=== PATIENT | male | born 1955 | race Caucasian/White ===

== ENCOUNTER 2016-04-01 15:32 | Emergency (ER) | payer OTHER ==
[2016-04-01 15:48] VITALS: BP 134/79; PULSE 97; TEMP 98.5; BMI 23.7
[2016-04-01 16:52] LABS: BASOPHIL 1.2 % (0-2.0); EOSINOPHIL 1.8 % (0-4.5); MCH 31.6 pg (25.7-33.7); MCHC 33.6 g/dl (32.0-35.9); MEAN CELL VOLUME 94.1 fl (80-96); NEUTROPHILS 79.2 % (42.8-82.8); PLATELET COUNT 219 K/MM3 (134-434); RDW 14.5 % (11.9-15.9); WHITE BLOOD COUNT 7.2 K/mm3 (4.0-10.0)
[2016-04-01 17:15] LABS: INR 1.02 (0.82-1.09); PROTHROMBIN TIME (PATIENT) 11.2 SEC (9.98-11.88)
[2016-04-01 17:21] LABS: ALBUMIN 3.4 g/dl (3.4-5.0); ANION GAP 7 (8-16); BILIRUBIN,TOTAL 0.9 mg/dL (0.2-1.0); CALCIUM 9.1 mg/dL (8.5-10.1); CO2 29 mmol/L (21-32); CREATININE 1.4 mg/dL (0.7-1.3); GLUCOSE,RANDOM 99 mg/dL (74-106); SGOT/AST 64 U/L (15-37); SGPT/ALT 44 U/L (12-78); TOT PROT 6.4 g/dl (6.4-8.2)
[2016-04-01 17:34] LABS: ALK PHOS 54 U/L (45-117); TROPONIN I < 0.02 ng/ml (0.00-0.05)
--- NOTE | 2016-04-01 18:09 | PDOC ---
[id number]: No Limitations - History of Present Illness Initial Comments: 04/01/16 18:25 The patient is a 60 year old female with a significant past medical history of testicular cancer, kidney cancer, renal insufficiency, who presents to the emergency department today for further evaluation of a hematoma on his right buttox since Tuesday. The patient states that he was playing tennis and went to back peddle when he fell on his buttox. The patient states that over past 2 days the hematoma has expanded to the posterior side of his right calf. patient also notes that Tuesday and Tuesday of this week he was experiencing dysuria and orange tinted urine. He notes that he has not experienced dysuria and orange tinted urine before but they have mostly resolved The patient denies fever, chills, and sweats. The patient denies nausea, vomiting, and diarrhea. The patient denies chest pain, cough, and shortness of breath. <Chau Corey - Last Filed: 04/01/16 18:26> <Stiven Guzman - Last Filed: 04/30/16 09:47> - General Chief Complaint: Injury Stated Complaint: BUTTOCKS SWELLING (HEMATOMA) Time Seen by Provider: 04/01/16 16:01 Past History <Chau Corey - Last Filed: 04/01/16 18:26> - Past Medical History Anemia: No Asthma: (SEASONAL ALLERGIES WITH WHEEZING) Cancer: Yes (TESTICULAR) Cardiac Disorders: No CVA: No COPD: No CHF: No Dementia: No Diabetes: No GI Disorders: No Disorders: Yes (LESION REMOVED FROM RIGHT KIDNEY) HTN: No Hypercholesterolemia: No Liver Disease: No Seizures: No Thyroid Disease: No - Surgical History Abdominal Surgery: No Appendectomy: No Cardiac Surgery: No Cholecystectomy: No Lung Surgery: No Neurologic Surgery: No Orthopedic Surgery: Yes (ARTHROSCOPY RIGHT '06) - Psycho/Social/Smoking Cessation Hx Suicidal Ideation: No Smoking History: Never smoked Have you smoked in the past 12 months: No Hx Alcohol Use: No Drug/Substance Use Hx: No Substance Use Type: None Hx Substance Use Treatment: No <Stiven Guzman - Last Filed: 04/30/16 09:47> - Past Medical History Allergies/Adverse Reactions: Allergies Allergy/AdvReac Type Severity Reaction Status Date / Time Penicillins Allergy Mild Cough Verified 04/01/16 15:44 Home Medications: Ambulatory Orders Clomipramine HCl [Anafranil] 150 mg PO HS 04/01/16 Review of Systems - Review of Systems Able to Perform ROS?: Yes Comments:: 04/01/16 18:25 GENERAL/CONSTITUTIONAL: No fever or chills. No weakness. HEAD, EYES, EARS, NOSE AND THROAT: No change in vision. No ear pain or discharge. No sore throat. CARDIOVASCULAR: No chest pain or shortness of breath. RESPIRATORY: No cough, wheezing, or hemoptysis. GASTROINTESTINAL: No nausea, vomiting, diarrhea or constipation. GENITOURINARY:(+) Dysuria, orange tinted urine. No frequency. MUSCULOSKELETAL: (+) Hematoma from right buttox to right calf. No neck or back pain. SKIN: No rash NEUROLOGIC: No headache, vertigo, loss of consciousness, or change in strength/ sensation. ENDOCRINE: No increased thirst. No abnormal weight change. HEMATOLOGIC/LYMPHATIC: No anemia, easy bleeding, or history of blood clots. ALLERGIC/IMMUNOLOGIC: No hives or skin allergy. <Chau Corey - Last Filed: 04/01/16 18:26> *Physical Exam - Vital Signs Last Vital Signs Temp Pulse Resp BP Pulse Ox 98.5 F 97 H 18 134/79 100 04/01/16 15:46 04/01/16 15:46 04/01/16 15:46 04/01/16 15:46 04/01/16 15:46 - Physical Exam Comments: 04/01/16 18:25 GENERAL: Awake, alert, and fully oriented, in no acute distress HEAD: No signs of trauma EYES: PERRLA, EOMI, sclera anicteric, conjunctiva clear ENT: Auricles normal inspection, hearing grossly normal, nares patent, oropharynx clear without exudates. Moist mucosa NECK: Passive and active motion limited due to dystonia, supple, no lymphadenopathy, JVD, or masses LUNGS: Breath sounds equal, clear to auscultation bilaterally. No wheezes, and no crackles HEART: Regular rate and rhythm, normal S1 and S2, no murmurs, rubs or gallops ABDOMEN: Soft, nontender, normoactive bowel sounds. No guarding, no rebound. No masses EXTREMITIES: Hematoma from right buttox to right mid calf. Normal range of motion, no edema. No clubbing or cyanosis. No cords, erythema, or tenderness NEUROLOGICAL: Cranial nerves II through XII grossly intact. Normal speech, normal gait SKIN: Warm, Dry, normal turgor, no rashes or lesions noted. <Chau Corey - Last Filed: 04/01/16 18:26> - Vital Signs Last Vital Signs Temp Pulse Resp BP Pulse Ox 98.5 F 97 H 18 134/79 100 04/01/16 15:46 04/01/16 15:46 04/01/16 15:46 04/01/16 15:46 04/01/16 15:46 <Stiven Guzman - Last Filed: 04/30/16 09:47> Heart Score/ECG Review - ECG Impressions Comment:: 04/01/16 18:26 ECG Impression: Normal sinus rhythm. Normal ECG. <Chau Corey - Last Filed: 04/01/16 18:26> ED Treatment Course - LABORATORY CBC & Chemistry Diagram: 04/01/16 16:33 04/01/16 16:33 - ADDITIONAL ORDERS Additional order review: Laboratory Results 04/01/16 04/01/16 04/01/16 16:33 16:33 16:33 INR 1.02 Sodium 142 Potassium 4.3 Chloride 106 Carbon Dioxide 29 Anion Gap 7 L BUN 25 H Creatinine 1.4 H Creat Clearance w eGFR 51.52 Random Glucose 99 Calcium 9.1 Total Bilirubin 0.9 AST 64 H ALT 44 Alkaline Phosphatase 54 Creatine Kinase 1616 H Creatine Kinase Index 0.6 CK-MB (CK-2) 9.112 H CK-MB (CK-2) Rel Index Cancelled Troponin I < 0.02 Total Protein 6.4 Albumin 3.4 04/01/16 16:33 RBC 3.65 L MCV 94.1 MCHC 33.6 RDW 14.5 MPV 7.0 L Neutrophils % 79.2 Lymphocytes % 10.7 Monocytes % 7.1 Eosinophils % 1.8 Basophils % 1.2 <Chau Corey - Last Filed: 04/01/16 18:26> - LABORATORY CBC & Chemistry Diagram: 04/01/16 16:33 04/01/16 16:33 - ADDITIONAL ORDERS Additional order review: Laboratory Results 04/01/16 04/01/16 16:33 16:33 INR 1.02 Sodium 142 Potassium 4.3 Chloride 106 Carbon Dioxide 29 Anion Gap 7 L BUN 25 H Creatinine 1.4 H Creat Clearance w eGFR 51.52 Random Glucose 99 Calcium 9.1 Total Bilirubin 0.9 AST 64 H ALT 44 Alkaline Phosphatase 54 Creatine Kinase 1616 H CK-MB (CK-2) 9.112 H Troponin I < 0.02 Total Protein 6.4 Albumin 3.4 04/01/16 16:33 RBC 3.65 L MCV 94.1 MCHC 33.6 RDW 14.5 MPV 7.0 L Neutrophils % 79.2 Lymphocytes % 10.7 Monocytes % 7.1 Eosinophils % 1.8 Basophils % 1.2 - RADIOLOGY Radiology Studies Ordered: Category Date Time Status HIP & PELVIS-RIGHT [RAD] Stat Radiology 04/01/16 17:49 Ordered PELVIS [RAD] Stat Radiology 04/01/16 17:49 Ordered DUPLEX VASCUL US-1 LEG [US] Stat Ultrasound 04/01/16 16:27 Completed <Stiven Guzman - Last Filed: 04/30/16 09:47> *DC/Admit/Observation/Transfer - Attestations Scribe Attestion: 04/01/16 18:26 Documentation prepared by Chau Corey, acting as medical management specialist for Stiven Guzman DO. <Chau Corey - Last Filed: 04/01/16 18:26> - Attestations Physician Attestion: 04/01/16 18:09 I, Dr. Stiven Guzman, attest that this document has been prepared under my direction and personally reviewed by me in its entirety. I further attest, that it accurately reflects all work, treatment, procedures and medical decision -making performed by me. <Stiven Guzman - Last Filed: 04/30/16 09:47> Diagnosis at time of Disposition: Hematoma - Discharge Dispostion Disposition: HOME Condition at time of disposition: Stable - Referrals Referrals: Colleen Milian MD [Primary Care Provider] - - Patient Instructions Printed Discharge Instructions: DI for Hematoma (Bruise) Additional Instructions: Please follow up with Dr. Calvo on Tuesday re-evaluation, and lab draw.
[2016-04-01] MEDS ORDERED: SODIUM CHLORIDE 1,000 ML IV STA (18:49)
[2016-04-01 19:00] LABS: URINE APPEARANCE CLOUDY; URINE BILIRUBIN NEGATIVE (NEGATIVE); URINE BLOOD NEGATIVE (NEGATIVE); URINE COLOR YELLOW; URINE GLUCOSE (UA) NEGATIVE (NEGATIVE); URINE KETONE NEGATIVE (NEGATIVE); URINE LEUK ESTERASE NEGATIVE (NEGATIVE); URINE NITRITE NEGATIVE (NEGATIVE); URINE PROTEIN NEGATIVE (NEGATIVE); URINE UROBILINOGEN NEGATIVE E.U./dl (0.2-1.0)
--- NOTE | 2016-04-01 20:25 | PDOC ---
*Physical Exam - Vital Signs Last Vital Signs Temp Pulse Resp BP Pulse Ox 98.5 F 97 H 18 134/79 100 04/01/16 15:46 04/01/16 15:46 04/01/16 15:46 04/01/16 15:46 04/01/16 15:46 ED Treatment Course - LABORATORY CBC & Chemistry Diagram: 04/01/16 16:33 04/01/16 16:33 - ADDITIONAL ORDERS Additional order review: Laboratory Results 04/01/16 04/01/16 04/01/16 16:33 16:33 16:33 INR Sodium 142 Potassium 4.3 Chloride 106 Carbon Dioxide 29 Anion Gap 7 L BUN 25 H Creatinine 1.4 H Creat Clearance w eGFR 51.52 Random Glucose 99 Calcium 9.1 Total Bilirubin 0.9 AST 64 H ALT 44 Alkaline Phosphatase 54 Creatine Kinase 1616 H Creatine Kinase Index 0.6 CK-MB (CK-2) 9.112 H CK-MB (CK-2) Rel Index Cancelled Troponin I < 0.02 Total Protein 6.4 Albumin 3.4 Urine Color Yellow Urine Appearance Cloudy Urine pH 7.0 Ur Specific [place] 1.015 Urine Protein Negative Urine Glucose (UA) Negative Urine Ketones Negative Urine Blood Negative Urine Nitrite Negative Urine Bilirubin Negative Urine Urobilinogen Negative Ur Leukocyte Esterase Negative 04/01/16 16:33 INR 1.02 Sodium Potassium Chloride Carbon Dioxide Anion Gap BUN Creatinine Creat Clearance w eGFR Random Glucose Calcium Total Bilirubin AST ALT Alkaline Phosphatase Creatine Kinase Creatine Kinase Index CK-MB (CK-2) CK-MB (CK-2) Rel Index Troponin I Total Protein Albumin Urine Color Urine Appearance Urine pH Ur Specific [place] Urine Protein Urine Glucose (UA) Urine Ketones Urine Blood Urine Nitrite Urine Bilirubin Urine Urobilinogen Ur Leukocyte Esterase 04/01/16 16:33 RBC 3.65 L MCV 94.1 MCHC 33.6 RDW 14.5 MPV 7.0 L Neutrophils % 79.2 Lymphocytes % 10.7 Monocytes % 7.1 Eosinophils % 1.8 Basophils % 1.2 - Medications Given in the ED: ED Medications Discontinued Medications Generic Name Dose Route Start Last Admin Trade Name Freq PRN Reason Stop Dose Admin Sodium Chloride 1,000 mls @ 2,000 mls/hr 04/01/16 18:49 04/01/16 18:55 Normal Saline - IV 04/01/16 19:18 2,000 mls/hr ASDIR STA Administration *DC/Admit/Observation/Transfer Diagnosis at time of Disposition: Hematoma - Discharge Dispostion Disposition: HOME Condition at time of disposition: Stable Admit: No - Referrals Referrals: Colleen Milian MD [Primary Care Provider] - - Patient Instructions Printed Discharge Instructions: DI for Hematoma (Bruise) Additional Instructions: Please follow up with Dr. Calvo on Tuesday re-evaluation, and lab draw. - Post Discharge Activity
--- NOTE | 2016-04-02 10:40 | EKG ---
Test Reason : Blood Pressure : / mmHG Vent. Rate : 100 BPM Atrial Rate : 100 BPM P-R Int : 156 ms QRS Dur : 114 ms QT Int : 350 ms P-R-T Axes : 070 017 055 degrees QTc Int : 451 ms NORMAL SINUS RHYTHM NONSPECIFIC ST ABNORMALITY Confirmed by BELGICA SMITH MD ([id number]) on 04/02/2016 10:39:56 AM Referred By: Confirmed By:BELGICA SMITH MD
== END 2016-04-01 21:00 | disposition home or self-care (01) ==
LOC: JER 15:32 → JERFT 15:32 → JER 21:00
PROC: 3E0337Z Introduction of Electrolytic and Water Balance Substance into Peripheral Vein, Percutaneous Approach (ICD-10-PCS; principal; 2016-04-01)
DX: S30.0XXA Contusion of lower back and pelvis, initial encounter (principal); W18.39XA Other fall on same level, initial encounter; Y93.73 Activity, racquet and hand sports; Y92.312 Tennis court as the place of occurrence of the external cause; Y99.8 Other external cause status; Z85.47 Personal history of malignant neoplasm of testis; Z85.528 Personal history of other malignant neoplasm of kidney
CPT/HCPCS: 36415; 72170-TC; 73523-TC; 80053; 81003; 82550; 82553; 84484; 85025; 85610; 87086; 93005; 93010; 93971-TC; 99283-25

== ENCOUNTER 2016-04-04 15:42 | Emergency (ER) | payer OTHER ==
[2016-04-04 15:51] VITALS: BP 126/72; PULSE 108; TEMP 98; BMI 23.8
--- NOTE | 2016-04-04 16:20 | PDOC ---
History of Present Illness - General History Source: Patient, Old Records Exam Limitations: No Limitations <Angeline Simpson - Last Filed: 04/04/16 16:16> - General History Source: Patient Exam Limitations: No Limitations - History of Present Illness Initial Comments: 04/04/16 16:31 The patient 60-year-old man with a significant past medical history of testicular Ca and kidney Ca (2007; removal of < 30%), renal insufficiency who presents to the emergency department via walk-in for further evaluation of progressively worsening right buttock bruising for the past 4 days. Patient states that approximately 4 days ago, he was playing tennis, when he suddenly fell onto his right buttock and noted bruising Patient presented to the ED on the very same day, where images were taken, and were normal. Patient states that post discharge, he notes that his bruising has worsen, as it extends to his scrotum, down his right leg and in between his toes with noted open sores on his right ankle. He is not on blood thinners and he denies any past medical history of bleeding disorders. No numbness, tingling and weakness sensations throughout his extremities. No recent fevers, chills, generalized weakness. No chest pain, lightheadedness, dizziness, palpitations. No abdominal pain, nausea, vomiting, diarrhea. Allergies: Penicillin Past Surgical History: Nephrectomy (less than 30 percent) Social History: No tobacco, ETOH and recreational drug use. Primary Care Physician: Dr. Colleen Milian [phone] <Rowan Cantu - Last Filed: 04/04/16 17:16> - General Chief Complaint: Revisit,Wound Recheck Stated Complaint: REVIST/ WORSENED BRUSE Time Seen by Provider: 04/04/16 16:00 Past History - Past Medical History Anemia: No Asthma: (SEASONAL ALLERGIES WITH WHEEZING) Cancer: Yes (TESTICULAR) Cardiac Disorders: No CVA: No COPD: No CHF: No Dementia: No Diabetes: No GI Disorders: No Disorders: Yes (LESION REMOVED FROM RIGHT KIDNEY) HTN: No Hypercholesterolemia: No Liver Disease: No Seizures: No Thyroid Disease: No - Surgical History Abdominal Surgery: No Appendectomy: No Cardiac Surgery: No Cholecystectomy: No Lung Surgery: No Neurologic Surgery: No Orthopedic Surgery: Yes (ARTHROSCOPY RIGHT ') - Psycho/Social/Smoking Cessation Hx Suicidal Ideation: No Smoking History: Never smoked Have you smoked in the past 12 months: No Information on smoking cessation initiated: No Hx Alcohol Use: No Drug/Substance Use Hx: No Substance Use Type: None Hx Substance Use Treatment: No <Angeline Simpson - Last Filed: 04/04/16 16:16> <Rowan Cantu - Last Filed: 04/04/16 17:16> - Past Medical History Allergies/Adverse Reactions: Allergies Allergy/AdvReac Type Severity Reaction Status Date / Time Penicillins Allergy Mild Cough Verified 04/04/16 15:51 Home Medications: Ambulatory Orders Clomipramine HCl [Anafranil] 150 mg PO HS 04/01/16 Review of Systems - Review of Systems Able to Perform ROS?: Yes Comments:: 04/04/16 16:31 CONSTITUTIONAL: Absent: fever, chills, diaphoresis, generalized weakness, malaise, loss of appetite HEENT: Absent: rhinorrhea, nasal congestion, throat pain, throat swelling, difficulty swallowing, mouth swelling, ear pain, eye pain, visual Changes CARDIOVASCULAR: Absent: chest pain, syncope, palpitations, irregular heart rate , lightheadedness, peripheral edema RESPIRATORY: Absent: cough, shortness of breath, dyspnea with exertion, orthopnea, wheezing, stridor, hemoptysis GASTROINTESTINAL:Absent: abdominal pain, abdominal distension, nausea, vomiting , diarrhea, constipation, melena, hematochezia GENITOURINARY: Absent: dysuria, frequency, urgency, hesitancy, hematuria, flank pain, genital pain MUSCULOSKELETAL: Absent: myalgia, arthralgia, joint swelling SKIN: Present: Open sores to his right ankle. Absent: rash, itching, pallor HEMATOLOGIC/IMMUNOLOGIC: Present: Easy bruising. Absent: easy bleeding, lymphadenopathy, frequent infections ENDOCRINE:Absent: unexplained weight gain, unexplained weight loss, heat intolerance, cold intolerance NEUROLOGIC: Present: right sided involuntary twitches. Right upper extremity stiffness. Absent: headache, dizziness, unsteady gait, seizure, mental status changes, bladder or bowel incontinence PSYCHIATRIC: Absent: anxiety, depression, suicidal or homicidal ideation, hallucinations <Rowan Cantu - Last Filed: 04/04/16 17:16> *Physical Exam - Vital Signs Last Vital Signs Temp Pulse Resp BP Pulse Ox 98 F 108 H 18 126/72 99 04/04/16 15:47 04/04/16 15:47 04/04/16 15:47 04/04/16 15:47 04/04/16 15:47 <Angeline Simpson - Last Filed: 04/04/16 16:16> - Vital Signs Last Vital Signs Temp Pulse Resp BP Pulse Ox 98 F 108 H 18 126/72 99 04/04/16 15:47 04/04/16 15:47 04/04/16 15:47 04/04/16 15:47 04/04/16 15:47 - Physical Exam Comments: 04/04/16 16:31 GENERAL: Well developed, well nourished. Awake and alert. No acute distress. HEENT: Normocephalic, atraumatic. PERRLA, EOMI. No conjunctival pallor. Sclera are non-icteric. Moist mucous membranes. Oropharynx is clear. NECK: Supple. Full ROM. No JVD. CARDIOVASCULAR: Regular rate and rhythm. No murmurs, rubs, or gallops. PULMONARY: No evidence of respiratory distress. Lungs clear to auscultation bilaterally. No wheezing, rales or rhonchi. ABDOMINAL: Soft. Non-tender. Non-distended. No rebound or guarding. No organomegaly. Normoactive bowel sounds. MUSCULOSKELETAL: Normal range of motion at all joints. No bony deformities or tenderness. No CVA tenderness. EXTREMITIES: No cyanosis. No clubbing. No edema. No calf tenderness. SKIN: There is noted extensive bruising, starting from the waistline that wraps around the right side of the anterior waistline to his scrotum. The bruising is circumferential throughout his right lower extremity. NEUROLOGICAL: Alert, awake, appropriate. Cranial nerves 2-12 intact. Normal speech. PSYCHIATRIC: Cooperative. Good eye contact. Appropriate mood and affect. <Rowan Cantu - Last Filed: 04/04/16 17:16> ED Treatment Course - RADIOLOGY Radiology Studies Ordered: Category Date Time Status ABDOMEN & PELVIS CT WITH CONTR [CT] Stat CT Scan 04/04/16 16:16 Ordered <Angeline Simpson - Last Filed: 04/04/16 16:16> - LABORATORY CBC & Chemistry Diagram: 04/04/16 16:10 04/04/16 16:10 <Rowan Cantu - Last Filed: 04/04/16 17:16> Medical Decision Making - Medical Decision Making 04/04/16 16:17 60-year-old male with history of testicular and renal cancer who presents to the emergency department status post mechanical fall onto his right buttock 3 days ago with progressive worsening of bruising and right lower extremity edema. Differential diagnosis includes but is not limited to: Soft tissue injury , solid organ injury, vessel injury, dependent edema, anemia. Plan: 1. Labs 2. Type and screen 3. CT scan of the abdomen and pelvis with IV contrast 4. Observe and reevaluate <Angeline Simpson - Last Filed: 04/04/16 16:16> *DC/Admit/Observation/Transfer - Attestations Physician Attestion: 04/04/16 16:20 I, Dr. Angeline Simpson, attest that the scribes documentation that appears above has been prepared under my direction and personally reviewed by me in its entirety. I confirmed that the note above accurately reflects all work, treatment, procedures, and medical decision-making performed by me. <Angeline Simpson - Last Filed: 04/04/16 16:16> - Attestations Scribe Attestion: 04/04/16 16:32 Documentation prepared by Rowan Cantu, acting as medical record technician for Angeline Simpson MD. <Rowan Cantu - Last Filed: 04/04/16 17:16> Diagnosis at time of Disposition: Hematoma
[2016-04-04 16:30] LABS: BASOPHIL 0.7 % (0-2.0); EOSINOPHIL 4.1 % (0-4.5); MCH 31.8 pg (25.7-33.7); MCHC 33.5 g/dl (32.0-35.9); MEAN CELL VOLUME 94.9 fl (80-96); MEAN PLT VOLUME 6.8 fl (7.5-11.1); NEUTROPHILS 73.4 % (42.8-82.8); PLATELET COUNT 233 K/MM3 (134-434); RDW 14.6 % (11.9-15.9); WHITE BLOOD COUNT 6.3 K/mm3 (4.0-10.0)
[2016-04-04 16:41] LABS: INR 0.96 (0.82-1.09); PROTHROMBIN TIME (PATIENT) 10.6 SEC (9.98-11.88)
[2016-04-04 16:43] LABS: ACTIVATED PTT 30.7 SECONDS (26.9-34.4)
[2016-04-04 16:52] LABS: ALBUMIN 3.2 g/dl (3.4-5.0); BILIRUBIN,TOTAL 0.7 mg/dL (0.2-1.0); CALCIUM 8.4 mg/dL (8.5-10.1); CREATININE 1.3 mg/dL (0.7-1.3)
[2016-04-04 17:01] LABS: URINE APPEARANCE SLCLOUDY; URINE BILIRUBIN NEGATIVE (NEGATIVE); URINE COLOR DKYELLOW; URINE GLUCOSE (UA) NEGATIVE (NEGATIVE); URINE KETONE NEGATIVE (NEGATIVE); URINE LEUK ESTERASE NEGATIVE (NEGATIVE); URINE NITRITE NEGATIVE (NEGATIVE); URINE PROTEIN NEGATIVE (NEGATIVE); URINE UROBILINOGEN NEGATIVE E.U./dl (0.2-1.0)
[2016-04-04 17:07] LABS: URINE BLOOD 1+ (NEGATIVE)
[2016-04-04 17:09] LABS: URINE MUCUS RARE; URINE RBC 9 /hpf (0-3); URINE WBC 2 /hpf (3-5)
--- NOTE | 2016-04-04 19:07 | PDOC ---
*Physical Exam - Vital Signs Last Vital Signs Temp Pulse Resp BP Pulse Ox 98 F 108 H 18 126/72 99 04/04/16 15:47 04/04/16 15:47 04/04/16 15:47 04/04/16 15:47 04/04/16 15:47 ED Treatment Course - LABORATORY CBC & Chemistry Diagram: 04/04/16 16:10 04/04/16 16:10 - ADDITIONAL ORDERS Additional order review: Laboratory Results 04/04/16 04/04/16 04/04/16 16:50 16:10 16:10 INR PTT (Actin FS) Sodium 142 Potassium 4.1 Chloride 106 Carbon Dioxide 27 Anion Gap 9 BUN 25 H Creatinine 1.3 Creat Clearance w eGFR 56.12 Random Glucose 101 Calcium 8.4 L Total Bilirubin 0.7 D AST 65 H ALT 48 Alkaline Phosphatase 66 D Total Protein 6.0 L Albumin 3.2 L Urine Color Dkyellow Urine Appearance Slcloudy Urine pH 5.0 D Ur Specific [place] 1.019 Urine Protein Negative Urine Glucose (UA) Negative Urine Ketones Negative Urine Blood 1+ H Urine Nitrite Negative Urine Bilirubin Negative Urine Urobilinogen Negative Ur Leukocyte Esterase Negative Urine RBC 9 Urine WBC 2 Urine Mucus Rare Blood Type O POSITIVE Antibody Screen Negative 04/04/16 16:10 INR 0.96 PTT (Actin FS) 30.7 Sodium Potassium Chloride Carbon Dioxide Anion Gap BUN Creatinine Creat Clearance w eGFR Random Glucose Calcium Total Bilirubin AST ALT Alkaline Phosphatase Total Protein Albumin Urine Color Urine Appearance Urine pH Ur Specific [place] Urine Protein Urine Glucose (UA) Urine Ketones Urine Blood Urine Nitrite Urine Bilirubin Urine Urobilinogen Ur Leukocyte Esterase Urine RBC Urine WBC Urine Mucus Blood Type Antibody Screen 04/04/16 16:10 RBC 3.63 L MCV 94.9 MCHC 33.5 RDW 14.6 MPV 6.8 L Neutrophils % 73.4 Lymphocytes % 11.9 Monocytes % 9.9 Eosinophils % 4.1 D Basophils % 0.7 - RADIOLOGY Radiology Studies Ordered: Category Date Time Status ABDOMEN & PELVIS CT W/O CONTR [CT] Stat CT Scan 04/04/16 17:44 Taken Medical Decision Making - Medical Decision Making 04/04/16 19:07 -DISCUSSED FINDINGS OF CTSACN ABD/PELVIS WITH THE PATIENT - *DC/Admit/Observation/Transfer Diagnosis at time of Disposition: Hematoma - Discharge Dispostion Disposition: HOME Condition at time of disposition: Stable - Patient Instructions Printed Discharge Instructions: DI for Trauma Additional Instructions: -please follow up wit your doctor this week -you should return to the emergency department if you develop worsening symptoms
--- NOTE | 2016-04-08 12:30 | PDOC ---
Patient Follow-up (Call Back) - Post ED Follow - Up Condition at time of discharge: Stable Disposition at time of original discharge: HOME Reason for Call Back: Radiology (pt. to message left for him to call back in regards to CAT scan that was taken on 04/04/2016 that revealed a 2 cm soft tissue opacity along the left psoterior urinary bladder wall probable representing asymmetric Marchman of the prostate gland and probably less likely and intrinsic urinary bladder polypoid lesion. Correlate with cystoscopy. Pt.had been called by Alycia Dorantes NP. Pt. has an appt with primary on 03/1616, than with urologist DR. Soriano on 04/28/16 CT or abdomen & pelvis w/o contrast sent to both MD's. Pt.is aware of results and will follow up with both MD's.)
== END 2016-04-04 20:06 | disposition home or self-care (01) ==
LOC: JER 15:42
DX: S30.0XXD Contusion of lower back and pelvis, subsequent encounter (principal); W18.39XD Other fall on same level, subsequent encounter
CPT/HCPCS: 36415; 74176-TC; 80053; 81003; 81015; 85025; 85610; 85730; 86850; 86900; 86901; 99282-25

== ENCOUNTER 2016-09-08 10:11 | Inpatient (IN) | payer OTHER ==
[2016-09-08 11:47] LABS: BASOPHIL 0.6 % (0-2.0); EOSINOPHIL 1.4 % (0-4.5); MCH 30.6 pg (25.7-33.7); MCHC 32.8 g/dl (32.0-35.9); MEAN CELL VOLUME 93.5 fl (80-96); MEAN PLT VOLUME 6.8 fl (7.5-11.1); NEUTROPHILS 72.9 % (42.8-82.8); PLATELET COUNT 201 K/MM3 (134-434); RDW 15.7 % (11.9-15.9); WHITE BLOOD COUNT 5.1 K/mm3 (4.0-10.0)
--- NOTE | 2016-09-08 11:47 | PDOC ---
History of Present Illness - General History Source: Patient Exam Limitations: No Limitations - History of Present Illness Initial Comments: 09/08/16 11:47 The patient is a 61 year old male, with a significant past medical history of testicular Ca and kidney Ca (2007; removal of <30%), OCD, renal insufficiency who presents to the emergency department with intermittent chest pain since yesterday that often radiates to his back. The patient reports having worsening chest pain since yesterday morning. Patient relates this morning having a near syncope episode, secondary to chest pain. He describes his pain as a crushing pain, and ranks his pain a 5/10 in pain intensity. He denies ever having these symptoms in the past. The patient does note having OCD and having an increase of stress/anxiety due to his mother's recent illness. He denies any recent travel. He denies any palpitations. He denies any recent injury/trauma to his chest. He denies any recent fevers, chills, headache or dizziness. He denies any recent nausea, vomit, diarrhea or constipation. He denies any recent shortness of breath. He denies any recent dysuria, frequency, urgency or hematuria. Allergies: Penicillins Past surgical history: None Recently. Social History: Nonsmoker. Denies EtOH use and recreational drug use. 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) HTN: No Hypercholesterolemia: No Liver Disease: No Seizures: No Thyroid Disease: No - Surgical History Abdominal Surgery: No Appendectomy: No Cardiac Surgery: No Cholecystectomy: No Lung Surgery: No Neurologic Surgery: No Orthopedic Surgery: Yes (ARTHROSCOPY RIGHT ') - Psycho/Social/Smoking Cessation Hx Anxiety: No Suicidal Ideation: No Smoking History: Never smoked Have you smoked in the past 12 months: No Hx Alcohol Use: No Drug/Substance Use Hx: No Substance Use Type: None Hx Substance Use Treatment: No <Debbie Galvez - Last Filed: 09/09/16 11:12> - Past Medical History Allergies/Adverse Reactions: Allergies Allergy/AdvReac Type Severity Reaction Status Date / Time Penicillins Allergy Mild Cough Verified 09/08/16 10:19 Home Medications: Ambulatory Orders Clomipramine HCl [Anafranil] 150 mg PO HS 04/01/16 Review of Systems - Review of Systems Able to Perform ROS?: Yes Comments:: 09/08/16 11:47 GENERAL/CONSTITUTIONAL: No: fever, chills, weakness, loss of appetite. HEAD, EYES, EARS, NOSE AND THROAT: No: change in vision, ear pain, discharge, sore throat, throat swelling. CARDIOVASCULAR: +chest pain No: lightheadedness, palpitations, syncope RESPIRATORY: No: cough, shortness of breath, wheezing, hemoptysis, stridor. GASTROINTESTINAL: No: nausea, vomiting, diarrhea, abdominal cramping, rectal bleeding, constipation. GENITOURINARY: No: dysuria, hematuria, frequency, urgency, flank pain. MUSCULOSKELETAL: No: neck pain, joint pain, muscle swelling or pain SKIN : No: lesions, pallor, rash or easy bruising. NEUROLOGIC: No: headache, vertigo, paresthesias, weakness ENDOCRINE: No: unexplained weight gain or loss HEMATOLOGIC/LYMPHATIC: No: anemia, easy bleeding, swelling nodes. <Yo Orellana - Last Filed: 09/08/16 12:24> *Physical Exam - Vital Signs Last Vital Signs Temp Pulse Resp BP Pulse Ox 98.2 F 90 18 150/96 98 09/08/16 10:13 09/08/16 10:13 09/08/16 10:13 09/08/16 10:13 09/08/16 10:13 - Physical Exam Comments: 09/08/16 11:47 GENERAL: The patient is in no acute distress. HEAD: Normal with no signs of trauma. EYES: PERRLA, EOMI, sclera anicteric, conjunctiva clear. ENT: Ears normal, nares patent, oropharynx clear without exudates. Moist mucous membranes. NECK: Normal range of motion, supple without lymphadenopathy, JVD, or masses. LUNGS: Breath sounds equal, clear to auscultation bilaterally. No wheezes, and no crackles. HEART: Regular rate and rhythm, normal S1 and S2 without murmur, rub or gallop. ABDOMEN: Soft, nontender, normoactive bowel sounds. No guarding, no rebound. No masses palpable. EXTREMITIES: Normal range of motion, no edema. No clubbing or cyanosis. No erythema, or tenderness. NEUROLOGICAL: Cranial nerves II through XII grossly intact. Normal speech. No focal neurological deficits. MUSCULOSKELETAL: Back non-tender to palpation, no CVA tenderness SKIN: Warm, Dry, normal turgor, no rashes or lesions noted. <Yo rOellana - Last Filed: 09/08/16 12:24> - Vital Signs Last Vital Signs Temp Pulse Resp BP Pulse Ox 98.2 F 90 18 150/96 98 09/08/16 10:13 09/08/16 10:13 09/08/16 10:13 09/08/16 10:13 09/08/16 10:13 <Debbie Galvez - Last Filed: 09/09/16 11:12> Heart Score/ECG Review #1 ECG reviewed & interpreted by me at: 12:43 09/08/16 12:43 Twelve-lead EKG was performed and reviewed by me. There is normal sinus rhythm with a normal rate of 82 bpm. The axis is normal. The intervals are normal - pr: 160ms, QRS:90ms, QTc:427ms. There are no ST or T wave abnormalities. <Debbie Galvez - Last Filed: 09/09/16 11:12> ED Treatment Course - LABORATORY CBC & Chemistry Diagram: 09/08/16 11:30 09/08/16 11:30 - RADIOLOGY Radiograph Interpretation: 09/08/16 11:48 CHEST X-RAY impressions reported by : No active pulmonary disease. <Yo Orellana - Last Filed: 09/08/16 12:24> - LABORATORY CBC & Chemistry Diagram: 09/09/16 05:35 09/09/16 05:35 - RADIOLOGY Radiology Studies Ordered: Category Date Time Status ABDOMEN/PELVIS CTA W/WO CONTR [CT] Stat CT Scan 09/08/16 11:41 Ordered CHEST CTA [CT] Stat CT Scan 09/08/16 11:41 Ordered CHEST X-RAY PORTABLE* [RAD] Stat Radiology 09/08/16 10:54 Completed <Debbie Galvez - Last Filed: 09/09/16 11:12> Medical Decision Making - Medical Decision Making 09/08/16 12:24 Call made to , awaiting call back. <Yo Orellana - Last Filed: 09/08/16 12:24> - Medical Decision Making 09/08/16 11:45 A portion of this note was documented by scribe services under my direction. I have reviewed the details of the note, within reason, and agree with the documentation with the following case summary and management plan written by me. Nursing documentation reviewed and incorporated into medical decision making 61 yo M presenting to the ER with a complaint of chest pain Pt has been hypertensive He denies history of diabetes No fevers, chills, cough No chest wall trauma No rash No lower extremity edema Differential includes cardiac ischemia, pe, Aortic dissection, pneumonia, pneumothorax, pleural effusion, costochondritis, pericarditis, GERD. 09/08/16 12:29 Laboratory Tests 09/08/16 09/08/16 11:30 11:30 WBC 5.1 Hgb 16.5 D Hct 50.5 H D Plt Count 201 Neutrophils % 72.9 Lymphocytes % 15.6 D Sodium 140 Potassium 4.3 Chloride 105 Carbon Dioxide 27 BUN 26 H Creatinine 1.6 H D Random Glucose 100 Creatine Kinase 208 D Troponin I < 0.02 CXR: normal Pt creatinine 1.6 BP in both arms equivalent Unable to CT this patient due to creatinine elevation 09/08/16 12:[address] Ojeda He has seen this patient in the ER Recommends Beta yesica and Asa Pt seen by Dr Castillo He will be adding on D dimer Will place on observation to Tele <Debbie Galvez - Last Filed: 09/09/16 11:12> *DC/Admit/Observation/Transfer - Attestations Scribe Attestion: 09/08/16 11:48 Documentation prepared by Yo Orellana, acting as medical or surgical instrument maker for Debbie Galvez MD. <Yo Orellana - Last Filed: 09/08/16 12:24> - Discharge Dispostion Admit: Yes <Debbie Galvez - Last Filed: 09/09/16 11:12> Diagnosis at time of Disposition: Chest pain Qualifiers: Chest pain type: other chest pain Qualified Code(s): R07.89 - Other chest pain - Discharge Dispostion Condition at time of disposition: Stable
[2016-09-08 12:13] LABS: ALBUMIN 3.6 g/dl (3.4-5.0); ANION GAP 8 (8-16); BILIRUBIN,TOTAL 0.3 mg/dL (0.2-1.0); CALCIUM 8.8 mg/dL (8.5-10.1); CO2 27 mmol/L (21-32); CREATININE 1.6 mg/dL (0.7-1.3); GLUCOSE,RANDOM 100 mg/dL (74-106); SGOT/AST 27 U/L (15-37); SGPT/ALT 33 U/L (12-78); TOT PROT 7.2 g/dl (6.4-8.2)
[2016-09-08 12:15] LABS: ALK PHOS 59 U/L (45-117); TROPONIN I < 0.02 ng/ml (0.00-0.05)
[2016-09-08 12:43] LABS: INR 0.93 (0.82-1.09); PROTHROMBIN TIME (PATIENT) 10.2 SEC (9.98-11.88)
[2016-09-08] MEDS ORDERED: METOPROLOL TARTRATE 25 MG TABLET (FP) PO ONE ×2 (12:43→15:34)
[2016-09-08] MEDS ORDERED: ASPIRIN 81 MG CHEWABLE TABLETS PO ONE (12:43)
--- NOTE | 2016-09-08 12:43 | CON.CARD ---
Consult Consult Specialty:: cardiology Reason for Consultation:: cp - History of Present Illness Chief Complaint: cp History of Present Illness: The patient is a 61 year old male, with a significant past medical history of testicular Ca and kidney Ca (2007; removal of <30%), OCD, renal insufficiency who presents to the emergency department with intermittent chest pain since yesterday that often radiates to his back. The patient reports having worsening chest pain since yesterday morning. Patient relates this morning having a near syncope episode, secondary to chest pain. He describes his pain as a crushing pain, and ranks his pain a 5/10 in pain intensity. He denies ever having these symptoms in the past. The patient does note having OCD and having an increase of stress/anxiety due to his mother's recent illness. He denies any recent travel. He denies any palpitations. He denies any recent injury/trauma to his chest. He denies any recent fevers, chills, headache or dizziness. He denies any recent nausea, vomit, diarrhea or constipation. He denies any recent shortness of breath. He denies any recent dysuria, frequency, urgency or hematuria. - History Source History Provided By: Patient, Medical Record - Alcohol/Substance Use Hx Alcohol Use: No - Smoking History Smoking history: Never smoked Have you smoked in the past 12 months: No Home Medications - Allergies Allergies/Adverse Reactions: Allergies Allergy/AdvReac Type Severity Reaction Status Date / Time Penicillins Allergy Mild Cough Verified 09/08/16 10:19 - Home Medications Home Medications: Ambulatory Orders Clomipramine HCl [Anafranil] 150 mg PO HS 04/01/16 Review of Systems - Review of Systems Constitutional: reports: No Symptoms Eyes: reports: No Symptoms HENT: reports: No Symptoms Neck: reports: No Symptoms Cardiovascular: reports: Chest Pain Gastrointestinal: reports: No Symptoms Genitourinary: reports: No Symptoms Breasts: reports: No Symptoms Reported Musculoskeletal: reports: No Symptoms Integumentary: reports: No Symptoms Neurological: reports: No Symptoms Endocrine: reports: No Symptoms Hematology/Lymphatic: reports: No Symptoms Psychiatric: reports: No Symptoms Vital Signs: Vital Signs Temperature 98.2 F 09/08/16 10:13 Pulse Rate 90 09/08/16 10:13 Respiratory Rate 18 09/08/16 10:13 Blood Pressure 150/96 09/08/16 10:13 O2 Sat by Pulse Oximetry (%) 98 09/08/16 10:13 Constitutional: Yes: Well Nourished, No Distress, Calm Eyes: Yes: WNL, Conjunctiva Clear, EOM Intact HENT: Yes: WNL, Atraumatic, Normocephalic Neck: Yes: WNL, Supple, Trachea Midline Respiratory: Yes: WNL, Regular, CTA Bilaterally Gastrointestinal: Yes: WNL, Normal Bowel Sounds Renal/: Yes: WNL Cardiovascular: Yes: WNL, Regular Rate and Rhythm Musculoskeletal: Yes: WNL Extremities: Yes: WNL Integumentary: Yes: WNL Neurological: Yes: WNL, Alert, Oriented ...Motor Strength: WNL Psychiatric: Yes: WNL, Alert, Oriented - Other Data Labs, Other Data: CBC, BMP 09/08/16 11:30 09/08/16 11:30 Troponin, BNP 09/08/16 11:30 Troponin I < 0.02 Troponin, BNP 09/08/16 11:30 Troponin I < 0.02 Imaging - Results Chest X-ray: Image Reviewed (no i/e) EKG: Image Reviewed (sr wnl) Assessment/Plan chest pain sx r/o dissection r/o acs hld cri plan echo bb asa telemetry mibi st or CTA depending on echo results
[2016-09-08 12:46] LABS: ACTIVATED PTT 32.5 SECONDS (26.9-34.4)
[2016-09-08] MEDS ORDERED: ASPIRIN 81 MG CHEWABLE TABLETS ONE (12:56)
[2016-09-08] MEDS ORDERED: METOPROLOL TARTRATE 25 MG TABLET (FP) ONE (12:56)
--- NOTE | 2016-09-08 12:56 | PN ---
Teaching Attending Note Name of Resident: Luis Enrique Epperson ATTENDING PHYSICIAN STATEMENT I saw and evaluated the patient. I reviewed the resident's note and discussed the case with the resident. I agree with the resident's findings and plan as documented. SUBJECTIVE:61 year old that presents to the emergency department c/o mid sternal sided chest pain, 5/10 in intensity that started yesterday , described as crushing, non radiating . It decreased in intensity over the course of time . PMH Anxiety Testicular cancer RCC CKD PSxHx partial nephrectomy OBJECTIVE: Vital Signs Temperature 98.2 F 09/08/16 10:13 Pulse Rate 90 09/08/16 10:13 Respiratory Rate 18 09/08/16 10:13 Blood Pressure 150/96 09/08/16 10:13 O2 Sat by Pulse Oximetry (%) 98 09/08/16 10:13 Constitutional: Yes: Well Nourished, No Distress, Calm Eyes: Yes: WNL, Conjunctiva Clear, EOM Intact HENT: Yes: WNL, Atraumatic, Normocephalic Neck: Yes: WNL, Supple, Trachea Midline Respiratory: Yes: WNL, Regular, CTA Bilaterally Gastrointestinal: Yes: WNL, Normal Bowel Sounds Renal/: Yes: WNL Cardiovascular: Yes: WNL, Regular Rate and Rhythm Musculoskeletal: Yes: WNL Extremities: Yes: WNL Integumentary: Yes: WNL Neurological: Yes: WNL, Alert, Oriented ...Motor Strength: WNL Psychiatric: Yes: WNL, Alert, Oriented CBC, BMP 09/08/16 11:30 09/08/16 11:30 Troponin negative x 1 EKG NSR @ [address]-t changes Active Medications Heparin Sodium (Porcine) (Heparin -) 5,000 unit SQ BID [facility] Polyethylene Glycol (Miralax (For Daily Use) -) 17 gm PO DAILY [facility] ASSESSMENT AND PLAN: 1. Chest pain , atypical , HEART 2 - serial troponin - ECHO ordered by cardiology - plan for stress vs CTA to rule out dissection ( depending on ECHO results ) 2. CKD - stable 3. Anxiety - stable
--- NOTE | 2016-09-08 13:02 | EKG ---
Test Reason : Blood Pressure : / mmHG Vent. Rate : 082 BPM Atrial Rate : 082 BPM P-R Int : 160 ms QRS Dur : 090 ms QT Int : 366 ms P-R-T Axes : 067 -03 060 degrees QTc Int : 427 ms NORMAL SINUS RHYTHM WITH SINUS ARRHYTHMIA NORMAL ECG WHEN COMPARED WITH ECG OF 01-APR-2016 17:30, NO SIGNIFICANT CHANGE WAS FOUND Confirmed by ROMAN LOPEZ MD ([id number]) on 09/08/2016 1:02:17 PM Referred By: Confirmed By:ROMAN LOPEZ MD
--- NOTE | 2016-09-08 13:49 | HP ---
Admitting History and Physical - Primary Care Physician PCP: Colleen Milian E - Admission Chief Complaint: Chest pain History of Present Illness: 61M PMH of R kidney cancer diagnosed in 2005, s/p partial nephrectomy in 2007, testicular cancer diagnosed in 2001 s/p bilateral orchiectomy, and OCD presents with 1 day history of intermittent crushing chest pain radiating to his back. Patient states he first noticed the pain yesterday. Went to sleep woke uyp and chest pain recurred but this time this morning he felt faint and felt like passing out. Patient denies any fever, chills, headache, dizziness, palpitations, nausea, vomiting, cough, or SOB. Patient states he has a history of chest pain and palpitations due to his OCD and has had many echo's and 2 cardiac stress tests (august 05 and feb 08), which were both negative. However he states this pain is different than previous episodes because it has never radiated to his back. He says he has been under a lot of stress lately due to his mother being ill. History Source: Patient Limitations to Obtaining History: No Limitations - Past Medical History CO FOUNDER AND DIRECTOR: No: Alzheimer's, CVA, Dementia, Migraine, Multiple Sclerosis, Peripheral Neuropathy, Parkinson's, Seizure, Syncope, TIA, Vertigo, Other Cardiovascular: Yes: HTN (possible HTN patient unsure but not on meds) Pulmonary: No: Asthma, Bronchitis, Cancer, COPD, O2 Dependent, Pneumonia, Previously Intubated, Pulmonary Embolus, Pulmonary Fibrosis, Sleep Apnea, Other Gastrointestinal: Yes: Constipation Hepatobiliary: No: Cirrhosis, Cholelithiasis, Cholecystitis, Choledocholithiasis , Hepatitis A, Hepatitis B, Hepatitis C, Other Renal/: Yes: Renal Inusuff Heme/Onc: Yes: Other (Renal Ca s/p Right partial nephrectomy Testicular Ca s/p bilateral orchiectomy) Infectious Disease: No: AIDS, C-Diff, Herpes Zoster, HIV, MRSA, STD's, Tuberculosis, VREF, Other Psych: Yes: Other (OCD) Musculoskeletal: Yes: Other. No: Bursitis, Chronic low back pain, Hemiparesis, Hemiplegia, Osteoarthritis, Paraplegia Rheumatology: No: Fibromyalgia, Gout, Lupus, Rheumatoid Arthritis, Sarcoidosis, Vasculitis, Other ENT: No: Allergic Rhinitis, Sinusitis, Other Endocrine: No: Payne's Disease, [place]'s Disease, Diabetes Insipidus, Diabetes Mellitus, Hyperparathyroidism, Hyperthyroidism, Hypothyroidism, Osteopenia, SIADH, Other Dermatology: No: Basal Cell, Cellulitis, Eczema, Melanoma, Psoriasis, Squamous Cell, Other - Past Surgical History Past Surgical History: Yes: Arthrosocopy (knee x 2), Nephrectomy (right partial) , Orchiectomy (bilateral) - Smoking History Smoking history: Never smoked Have you smoked in the past 12 months: No - Alcohol/Substance Use Hx Alcohol Use: No Home Medications - Allergies Allergies/Adverse Reactions: Allergies Allergy/AdvReac Type Severity Reaction Status Date / Time Penicillins Allergy Mild Cough Verified 09/08/16 10:19 - Home Medications Home Medications: Ambulatory Orders Clomipramine HCl [Anafranil] 150 mg PO HS 04/01/16 Family Disease History - Family Disease History Family Disease History: Other: Father (parkinsons and alzhemiers ), Mother (A fib ) Review of Systems - Review of Systems Constitutional: reports: No Symptoms Eyes: reports: No Symptoms HENT: reports: No Symptoms Neck: reports: No Symptoms Cardiovascular: reports: Chest Pain. denies: Shortness of Breath Respiratory: reports: No Symptoms Gastrointestinal: reports: Constipation Genitourinary: reports: No Symptoms Breasts: reports: No Symptoms Reported Musculoskeletal: reports: No Symptoms Integumentary: reports: No Symptoms Neurological: reports: No Symptoms Endocrine: reports: No Symptoms Hematology/Lymphatic: reports: No Symptoms Psychiatric: reports: Other (OCD) Physical Examination Vital Signs: Vital Signs Temperature 98.2 F 09/08/16 10:13 Pulse Rate 75 09/08/16 12:50 Respiratory Rate 18 09/08/16 10:13 Blood Pressure 171/107 09/08/16 12:50 O2 Sat by Pulse Oximetry (%) 99 09/08/16 12:50 Constitutional: Yes: Well Nourished, No Distress, Calm Eyes: Yes: Conjunctiva Clear, EOM Intact, PERRL HENT: Yes: Atraumatic, Normocephalic Neck: Yes: Supple, Trachea Midline Cardiovascular: Yes: WNL, Regular Rate and Rhythm, S1, S2. No: JVD Respiratory: Yes: WNL, Regular, CTA Bilaterally. No: Accessory Muscle Use Gastrointestinal: Yes: WNL, Normal Bowel Sounds, Soft Musculoskeletal: Yes: Other (no MSK tenderness) Extremities: Yes: WNL Edema: No Integumentary: Yes: WNL Neurological: Yes: WNL, Alert, Oriented, Cran Nerves II-XII Intact. No: Facial Droop ...Motor Strength: WNL Psychiatric: Yes: WNL, Alert, Oriented Imaging - Results Chest X-ray: Report Reviewed, Image Reviewed Assessment/Plan 61M with no significant PMH presents to the ED with 2 day history of chest pain and presyncopal symptoms Problem List: Atypical chest pain pre-syncope CKD HTN constipation Plan: Place on observation Telemetry monitoring trend troponins lipid profile Statin Aspirin given will continue D-Dimer to r/o PE Beta yesica given will continue cardiology consult Echo Low Fat Diet Cr at baseline will trend Visit type - Emergency Visit Emergency Visit: Yes ED Registration Date: 09/08/16 Care time: The patient presented to the Emergency Department on the above date and was hospitalized for further evaluation of their emergent condition. - New Patient This patient is new to me today: Yes Date on this admission: 09/08/16 - Critical Care Critical Care patient: No
--- NOTE | 2016-09-08 14:22 | HP ---
CHIEF COMPLAINT: Chest Pain PCP: Dr. Colleen Milian HISTORY OF PRESENT ILLNESS: 61 yo M with a PMH of R kidney cancer diagnosed in 2005, s/p partial nephrectomy in 2007, testicular cancer diagnosed in 2001, and OCD presents with 1 day history of intermittent crushing chest pain radiating to his back. Patient states he first noticed the pain yesterday. The pain was a 3/10 and lasted for a few minutes. He went to sleep and woke up this morning with another episode of 5/10 pain. He also had 2 episodes where he felt like he was going to pass out. The two symptoms caused him to go to the ED. Patient denies any fever, chills, headache, dizziness, palpitations, nausea, vomiting, cough, or SOB. Patient states he has a history of chest pain and palpitations due to his OCD and has had many echo's and 2 cardiac stress tests (august 05 and feb 08) , which were both negative. However he states this pain is different than previous episodes because it has never radiated to his back. He says he has been under a lot of stress lately due to his mother being ill. ER course was notable for: (1) EKG, CXR, cardio consult (2) Labs- troponins, ckmb, cbc, bmp (3) Echo, aspirin, metoprolol, chest CTA ordered Recent Travel: None PAST MEDICAL HISTORY: kidney cancer diagnosed in 2005 s/p r partial nephrectomy , testicular cancer diagnosed in 2001, and OCD with cardiac sx (palpitations, chest pain) PAST SURGICAL HISTORY: R partial nephrectomy (07/2007), arthroscopy (07/2005), Meniscus repair (02/2012) Social History: Smoking: Denies Alcohol: Denies Drugs: Denies Family History: Mom- A fib and arrhythmia. Dad-Parkinsons and Alzhemiers Allergies Penicillins Allergy (Mild, Verified 09/08/16 10:19) Cough FLU LIKE SYMPTOMS HOME MEDICATIONS: Home Medications Medication Instructions Recorded Clomipramine HCl [Anafranil] 150 mg PO HS 04/01/16 REVIEW OF SYSTEMS CONSTITUTIONAL: Absent: fever, chills, diaphoresis, generalized weakness, malaise, loss of appetite, weight change HEENT: Absent: rhinorrhea, nasal congestion, throat pain, throat swelling, difficulty swallowing, mouth swelling, ear pain, eye pain, visual changes CARDIOVASCULAR: Absent: syncope, palpitations, irregular heart rate, lightheadedness, peripheral edema Present: chest pain RESPIRATORY: Absent: cough, shortness of breath, dyspnea with exertion, orthopnea, wheezing, stridor, hemoptysis GASTROINTESTINAL: Absent: abdominal pain, abdominal distension, nausea, vomiting, diarrhea, melena , hematochezia Present: chronic constipation GENITOURINARY: Absent: dysuria, frequency, urgency, hesitancy, hematuria, flank pain, genital pain MUSCULOSKELETAL: Absent: myalgia, arthralgia, joint swelling, back pain, neck pain SKIN: Absent: rash, itching, pallor HEMATOLOGIC/IMMUNOLOGIC: Absent: easy bleeding, easy bruising, lymphadenopathy, frequent infections ENDOCRINE: Absent: unexplained weight gain, unexplained weight loss, heat intolerance, cold intolerance NEUROLOGIC: Absent: headache, focal weakness or paresthesias, dizziness, unsteady gait, seizure, mental status changes, bladder or bowel incontinence PSYCHIATRIC: Absent: anxiety, depression, suicidal or homicidal ideation, hallucinations. PHYSICAL EXAMINATION Vital Signs - 24 hr 09/08/16 13:59 Pulse Rate [ 84 Apical] Respiratory 18 Rate Blood Pressure 170/109 [Left Arm] O2 Sat by Pulse 100 Oximetry (%) GENERAL: Awake, alert, and fully oriented, in no acute distress. HEAD: Normal with no signs of trauma. EYES: Pupils equal, round and reactive to light, extraocular movements intact, sclera anicteric, conjunctiva clear. No lid lag. EARS, NOSE, THROAT: oropharynx clear without exudates. Moist mucous membranes. NECK: L cervical dystonia, supple without lymphadenopathy, JVD, or masses. LUNGS: Breath sounds equal, clear to auscultation bilaterally. No wheezes, and no crackles. No accessory muscle use. HEART: Regular rate and rhythm, normal S1 and S2 without murmur, rub or gallop. ABDOMEN: Soft, nontender, not distended, hypoactive bowel sounds, no guarding, no rebound, no masses. No hepatomegaly or splenomegaly. MUSCULOSKELETAL: Normal range of motion at all joints. No bony deformities or tenderness. No CVA tenderness. UPPER EXTREMITIES: 2+ radial pulses, warm, well-perfused. No cyanosis. No clubbing. No peripheral edema. LOWER EXTREMITIES: 2+ dorsalis pedis pulses, warm, well-perfused. No calf tenderness. No peripheral edema. NEUROLOGICAL: Normal speech. Gait not observed PSYCHIATRIC: Cooperative. Good eye contact. Appropriate mood and affect. SKIN: Warm, dry, normal turgor, no rashes or lesions noted, normal capillary refill. CBC, BMP 09/08/16 11:30 09/08/16 11:30 Abnormal Lab Results 09/08/16 09/08/16 11:30 11:30 Hct 50.5 H D MPV 6.8 L BUN 26 H Creatinine 1.6 H D CK-MB (CK-2) 3.803 H Initial Trops- <0.02 CXR- No acute lung pathology EKG- 82 nsr, Negative EKG ASSESSMENT/PLAN: 61 year old M with no significant past medical history presenting with a 2 day history of crushing chest pain and feelings of passing out 1. Atypical Chest Pain, R/o Aortic dissection, PE, ACS, pneumonia -Admit to telemetry -Cardiology consulted -Initial troponin is negative, will continue to trend -Aspirin started, will continue -Metoprolol started, will continue -F/u on results of echo -Patient will get lipitor 40mg tonight -Lipid profile tonight 2. Presyncope -Patient denies any more episodes -Patient was dehydrated -Encourage PO fluid intake. -Patient will be on telemetry to r/o arrythmia 3. HTN -150/96 -Not currently on any medication -Start metoprolol 25 mg BID and titrate up PRN 4. CKD s/p kidney cancer and R partial nephrectomy -Baseline creatinine is 1.4-1.6 -Cr currently at baseline -Will trend Cr 5. Chronic constipation -On clomipramine, per pt causing constipation -Has BM once every 2 days -Start miralax PO daily 6. OCD -Stable -Continue clompiramine 7. FE/GI -Low fat/cholesterol diet 8. DVT ppx -Heparin 5000 units sq bid 9. Deconditioning ppx -No PT needed for this pt -Patient ambulating -Will consider PT evaluation if pt stops ambulating Visit type - Emergency Visit Emergency Visit: Yes ED Registration Date: 09/08/16 Care time: The patient presented to the Emergency Department on the above date and was hospitalized for further evaluation of their emergent condition. - New Patient This patient is new to me today: Yes Date on this admission: 09/08/16 - Critical Care Critical Care patient: No
[2016-09-08 14:33] VITALS: BMI 22.7
[2016-09-08] MEDS: POLYETHYLENE GLYCOL 3350 119 GM BTL PO SCH (15:51)
[2016-09-08 16:01] LABS: CHOLESTEROL 202 mg/dL (50-200); LDL CHOLESTEROL (ONLY SJRH) 137 mg/dL (5-100)
[2016-09-08] MEDS: HEPARIN NA (PORCINE) 5,000 UNITS/ML 1ML VIAL SQ SCH (21:26)
[2016-09-08] MEDS: ATORVASTATIN CA 40 MG TABLET (FP) PO SCH (21:28)
[2016-09-08] MEDS: METOPROLOL TARTRATE 25 MG TABLET (FP) PO SCH (21:34)
[2016-09-09 07:23] LABS: BASOPHIL 0.3 % (0-2.0); EOSINOPHIL 1.4 % (0-4.5); MCH 31.2 pg (25.7-33.7); MCHC 33.2 g/dl (32.0-35.9); MEAN CELL VOLUME 93.9 fl (80-96); MEAN PLT VOLUME 7.2 fl (7.5-11.1); NEUTROPHILS 65.1 % (42.8-82.8); PLATELET COUNT 214 K/MM3 (134-434); RDW 15.6 % (11.9-15.9); WHITE BLOOD COUNT 7.1 K/mm3 (4.0-10.0)
[2016-09-09 07:50] LABS: ANION GAP 9 (8-16); CALCIUM 8.8 mg/dL (8.5-10.1); CO2 29 mmol/L (21-32); GLUCOSE,RANDOM 98 mg/dL (74-106)
[2016-09-09 07:53] LABS: CREATININE 1.4 mg/dL (0.7-1.3)
[2016-09-09] MEDS ORDERED: ASPIRIN 81 MG CHEWABLE TABLETS PO ONE (10:00)
--- NOTE | 2016-09-09 11:01 | PN ---
Physical Exam: SUBJECTIVE: Patient seen and examined No acute events overnight. Chest pain has resolved. Echo unremarkable. Patient will go for stress test today. OBJECTIVE: Vital Signs Period Temp Pulse Resp BP Sys/Charles Pulse Ox Last 24 Hr 98.1 F-98.9 F 68-77 20-20 155-178/98-105 100 GENERAL: Awake, alert, and fully oriented, in no acute distress. HEAD: Normal with no signs of trauma. EYES: Pupils equal, round and reactive to light, extraocular movements intact, sclera anicteric, conjunctiva clear. No lid lag. EARS, NOSE, THROAT: oropharynx clear without exudates. Moist mucous membranes. NECK: L cervical dystonia, supple without lymphadenopathy, JVD, or masses. LUNGS: Breath sounds equal, clear to auscultation bilaterally. No wheezes, and no crackles. No accessory muscle use. HEART: Regular rate and rhythm, normal S1 and S2 without murmur, rub or gallop. ABDOMEN: Soft, nontender, not distended, hypoactive bowel sounds, no guarding, no rebound, no masses. No hepatomegaly or splenomegaly. MUSCULOSKELETAL: Normal range of motion at all joints. No bony deformities or tenderness. No CVA tenderness. UPPER EXTREMITIES: 2+ radial pulses, warm, well-perfused. No cyanosis. No clubbing. No peripheral edema. LOWER EXTREMITIES: 2+ dorsalis pedis pulses, warm, well-perfused. No calf tenderness. No peripheral edema. NEUROLOGICAL: Normal speech. Gait not observed PSYCHIATRIC: Cooperative. Good eye contact. Appropriate mood and affect. SKIN: Warm, dry, normal turgor, no rashes or lesions noted, normal capillary refill. Laboratory Results - last 24 hr 09/08/16 09/08/16 09/08/16 15:45 17:30 23:15 WBC RBC Hgb Hct MCV MCH MCHC RDW Plt Count MPV Neutrophils % Lymphocytes % Monocytes % Eosinophils % Basophils % Sodium Potassium Chloride Carbon Dioxide Anion Gap BUN Creatinine Random Glucose Calcium Troponin I < 0.02 < 0.02 Triglycerides Cancelled Cholesterol Cancelled Total LDL Cholesterol Cancelled HDL Cholesterol Cancelled 09/09/16 09/09/16 05:35 05:35 WBC 7.1 D RBC 5.52 Hgb 17.2 H Hct 51.9 H MCV 93.9 MCH 31.2 MCHC 33.2 RDW 15.6 Plt Count 214 MPV 7.2 L Neutrophils % 65.1 Lymphocytes % 23.6 D Monocytes % 9.6 Eosinophils % 1.4 Basophils % 0.3 Sodium 141 Potassium 4.4 Chloride 103 Carbon Dioxide 29 Anion Gap 9 BUN 19 H D Creatinine 1.4 H Random Glucose 98 Calcium 8.8 Troponin I Triglycerides Cholesterol Total LDL Cholesterol HDL Cholesterol Active Medications Generic Name Dose Route Start Last Admin Trade Name Issaq PRN Reason Stop Dose Admin Atorvastatin Calcium 40 mg 09/08/16 22:00 09/08/16 21:28 Lipitor - PO 40 mg HS [facility] Administration Heparin Sodium (Porcine) 5,000 unit 09/08/16 22:00 09/08/16 21:26 Heparin - SQ 5,000 unit BID [facility] Administration Metoprolol Tartrate 25 mg 09/08/16 22:00 09/08/16 21:34 Lopressor - PO 25 mg BID [facility] Administration Non-Formulary Medication 150 mg 09/08/16 22:00 Clomipramine Hcl [Anafranil] PO HS [facility] Polyethylene Glycol 17 gm 09/08/16 15:00 09/08/16 15:51 Miralax (For Daily Use) - PO 17 grams DAILY [facility] Administration ASSESSMENT/PLAN: 61 year old M with no significant past medical history presenting with a 2 day history of crushing chest pain and feelings of passing out 1. Atypical Chest Pain, R/o Aortic dissection, PE, ACS, pneumonia -Placed in observation -Troponins negative x3 -Continue aspirin, metoprolol, Lipitor -Echo unremarkable -Stress test + -Patient is NPO, going for coronary angiogram today. -Patient being followed by cardiology (Dr. Ojeda/Annette) 2. Presyncope -Patient denies any more episodes -Patient was dehydrated -Encourage PO fluid intake. -Patient will be on telemetry to r/o arrythmia 3. HTN -155/99 -Not currently on any medication -Start metoprolol 25 mg BID and titrate up PRN 4. CKD s/p kidney cancer and R partial nephrectomy -Baseline creatinine is 1.4-1.6 -Cr currently at baseline -Will trend Cr 5. Chronic constipation -On clomipramine, per pt causing constipation -Has BM once every 2 days -Start miralax PO daily 6. OCD -Stable -Continue clompiramine 7. FE/GI -Low fat/cholesterol diet 8. DVT ppx -Heparin 5000 units sq bid 9. Deconditioning ppx -No PT needed for this pt -Patient ambulating -Will consider PT evaluation if pt stops ambulating Visit type - Emergency Visit Emergency Visit: No - New Patient This patient is new to me today: No - Critical Care Critical Care patient: No
[2016-09-09] MEDS ORDERED: ASPIRIN 81 MG CHEWABLE TABLETS ONE (12:41)
[2016-09-09] MEDS: METOPROLOL TARTRATE 25 MG TABLET (FP) PO SCH ×2 (12:45→21:18)
[2016-09-09] MEDS: POLYETHYLENE GLYCOL 3350 119 GM BTL PO SCH (12:45)
--- NOTE | 2016-09-09 12:50 | PN ---
Teaching Attending Note Name of Resident: Luis Enrique Epperson ATTENDING PHYSICIAN STATEMENT I saw and evaluated the patient. I reviewed the resident's note and discussed the case with the resident. I agree with the resident's findings and plan as documented. SUBJECTIVE:chest pain resolved OBJECTIVE: Vital Signs Temperature 98.6 F 09/09/16 10:00 Pulse Rate 84 09/09/16 10:00 Respiratory Rate 20 09/09/16 10:00 Blood Pressure 158/100 09/09/16 10:00 O2 Sat by Pulse Oximetry (%) 100 09/09/16 07:00 Constitutional: Yes: Well Nourished, No Distress, Calm Eyes: Yes: WNL, Conjunctiva Clear, EOM Intact HENT: Yes: WNL, Atraumatic, Normocephalic Neck: Yes: WNL, Supple, Trachea Midline Respiratory: Yes: WNL, Regular, CTA Bilaterally Gastrointestinal: Yes: WNL, Normal Bowel Sounds Renal/: Yes: WNL Cardiovascular: Yes: WNL, Regular Rate and Rhythm Musculoskeletal: Yes: WNL Extremities: Yes: WNL Integumentary: Yes: WNL Neurological: Yes: WNL, Alert, Oriented ...Motor Strength: WNL Psychiatric: Yes: WNL, Alert, Oriented CBC, BMP 09/09/16 05:35 09/09/16 05:35 troponin negative x 3 EKG - wnl ASSESSMENT AND PLAN: 1. Chest pain , atypical , HEART 2 - negative enzymes - echo without abnormality - MIBI is P 2. CKD - stable 3. Anxiety - stable if stress is negative may d/c
[2016-09-09] MEDS: HEPARIN NA (PORCINE) 5,000 UNITS/ML 1ML VIAL SQ SCH ×2 (12:59→21:18)
--- NOTE | 2016-09-09 14:37 | PN ---
Progress Note, Physician Chief Complaint: Pt alert; no chest pain. History of Present Illness: The patient is a 61 year old male, with a significant past medical history of testicular Ca and kidney Ca (2007; removal of <30%), OCD, renal insufficiency who presents to the emergency department with intermittent chest pain since yesterday that often radiates to his back. The patient reports having worsening chest pain since yesterday morning. Patient relates this morning having a near syncope episode, secondary to chest pain. He describes his pain as a crushing pain, and ranks his pain a 5/10 in pain intensity. He denies ever having these symptoms in the past. The patient does note having OCD and having an increase of stress/anxiety due to his mother's recent illness. He denies any recent travel. He denies any palpitations. He denies any recent injury/trauma to his chest. He denies any recent fevers, chills, headache or dizziness. He denies any recent nausea, vomit, diarrhea or constipation. He denies any recent shortness of breath. He denies any recent dysuria, frequency, urgency or hematuria. Allergies: Penicillins Past surgical history: None Recently. Social History: Nonsmoker. Denies EtOH use and recreational drug use. Primary Care Physician: Lock Plater: - Current Medication List Current Medications: Active Medications Atorvastatin Calcium (Lipitor -) 40 mg PO HS [facility] Last Admin: 09/08/16 21:28 Dose: 40 mg Heparin Sodium (Porcine) (Heparin -) 5,000 unit SQ BID [facility] Last Admin: 09/09/16 12:59 Dose: 5,000 unit Metoprolol Tartrate (Lopressor -) 25 mg PO BID [facility] Last Admin: 09/09/16 12:45 Dose: 25 mg Non-Formulary Medication (Clomipramine Hcl [Anafranil]) 150 mg PO [facility] Polyethylene Glycol (Miralax (For Daily Use) -) 17 gm PO DAILY [facility] Last Admin: 09/09/16 12:45 Dose: 17 grams - Objective Vital Signs: Vital Signs Temperature 96.8 F L 09/09/16 13:58 Pulse Rate 90 09/09/16 13:58 Respiratory Rate 20 09/09/16 13:58 Blood Pressure 126/77 09/09/16 13:58 O2 Sat by Pulse Oximetry (%) 100 09/09/16 07:00 Constitutional: Yes: Calm Eyes: Yes: WNL HENT: Yes: WNL Neck: Yes: Decreased ROM (hx cervical "dystonia" for years) Cardiovascular: Yes: Regular Rate and Rhythm Respiratory: Yes: WNL Gastrointestinal: Yes: Normal Bowel Sounds ...Rectal Exam: Yes: Deferred Genitourinary: No: Anuria Breast(s): Yes: WNL Musculoskeletal: Yes: Other (occasional numbness of left hand when driving;) Extremities: Yes: WNL Edema: No Peripheral Pulses WNL: Yes Neurological: Yes: Alert, Oriented, Numbness (incermittent to left hand when driving) Psychiatric: Yes: Alert, Oriented Labs: CBC, BMP 09/09/16 05:35 09/09/16 05:35 INR, PTT INR 0.93 (0.82-1.09) 09/08/16 11:30 Problem List - Problems (1) Renal disease Assessment/Plan: hx renal CA with surgery. ?baseline Cr 1.4-1.6 Code(s): N28.9 - DISORDER OF KIDNEY AND URETER, UNSPECIFIED (2) Chest pain Assessment/Plan: stress MIBI + (small area periinfarct ischemia) Pt for coronary angiogram. Code(s): R07.9 - CHEST PAIN, UNSPECIFIED Qualifiers: Chest pain type: other chest pain Qualified Code(s): R07.89 - Other chest pain; R07.8 - Other chest pain (3) HTN (hypertension) Code(s): I10 - ESSENTIAL (PRIMARY) HYPERTENSION (4) Hyperlipidemia Assessment/Plan: on atorvastatin Code(s): E78.5 - HYPERLIPIDEMIA, UNSPECIFIED
[2016-09-09] MEDS ORDERED: ASPIRIN 325 MG TABLET PO ONE (15:46)
[2016-09-09] MEDS ORDERED: CLOPIDOGREL BISULFATE 300 MG TABLET PO ONE (15:46)
[2016-09-09] MEDS: ATORVASTATIN CA 40 MG TABLET (FP) PO SCH (21:18)
--- NOTE | 2016-09-10 10:00 | PN ---
Teaching Attending Note Name of Resident: Luis Enrique Epperson ATTENDING PHYSICIAN STATEMENT I saw and evaluated the patient. I reviewed the resident's note and discussed the case with the resident. I agree with the resident's findings and plan as documented. SUBJECTIVE: no chest pain Vital Signs Temperature 97.9 F 09/10/16 06:00 Pulse Rate 78 09/10/16 06:00 Respiratory Rate 20 09/10/16 06:00 Blood Pressure 137/76 09/10/16 06:00 O2 Sat by Pulse Oximetry (%) 100 09/09/16 22:00 EYES: Pupils equal, round and reactive to light, extraocular movements intact, sclera anicteric, conjunctiva clear. No lid lag. EARS, NOSE, THROAT: oropharynx clear without exudates. Moist mucous membranes. NECK: L cervical dystonia, supple without lymphadenopathy, JVD, or masses. LUNGS: Breath sounds equal, clear to auscultation bilaterally. No wheezes, and no crackles. No accessory muscle use. HEART: Regular rate and rhythm, normal S1 and S2 without murmur, rub or gallop. ABDOMEN: Soft, nontender, not distended, hypoactive bowel sounds, no guarding, no rebound, no masses. No hepatomegaly or splenomegaly. MUSCULOSKELETAL: Normal range of motion at all joints. No bony deformities or tenderness. No CVA tenderness. UPPER EXTREMITIES: 2+ radial pulses, warm, well-perfused. No cyanosis. No clubbing. No peripheral edema. LOWER EXTREMITIES: 2+ dorsalis pedis pulses, warm, well-perfused. No calf tenderness. No peripheral edema. Laboratory 09/08/16 09/08/16 09/08/16 10:54 11:30 11:30 WBC 5.1 K/mm3 K/mm3 (4.0-10.0) RBC 5.40 M/mm3 D M/mm3 (4.00-5.60) Hgb 16.5 GM/dL D GM/dL (11.7-16.9) Hct 50.5 % H D % (35.4-49) MCV 93.5 fl fl (80-96) MCH 30.6 pg pg (25.7-33.7) MCHC 32.8 g/dl g/dl (32.0-35.9) RDW 15.7 % % (11.9-15.9) Plt Count 201 K/MM3 K/MM3 (134-434) MPV 6.8 fl L fl (7.5-11.1) Neutrophils % 72.9 % % (42.8-82.8) Lymphocytes % 15.6 % D % (8-40) Monocytes % 9.5 % % (3.8-10.2) Eosinophils % 1.4 % % (0-4.5) Basophils % 0.6 % % (0-2.0) INR 0.93 (0.82-1.09) PTT (Actin FS) 32.5 SECONDS SECONDS (26.9-34.4) D-Dimer Sodium Potassium Chloride Carbon Dioxide Anion Gap BUN Creatinine Creat Clearance w eGFR Random Glucose Calcium Total Bilirubin AST ALT Alkaline Phosphatase Creatine Kinase Creatine Kinase Index CK-MB (CK-2) CK-MB (CK-2) Rel Index Troponin I Total Protein Albumin Triglycerides Cholesterol Total LDL Cholesterol HDL Cholesterol TSH Blood Type O POSITIVE Antibody Screen Negative 09/08/16 09/08/16 09/08/16 11:30 11:30 13:34 WBC RBC Hgb Hct MCV MCH MCHC RDW Plt Count MPV Neutrophils % Lymphocytes % Monocytes % Eosinophils % Basophils % INR PTT (Actin FS) D-Dimer < 200 ng/ml ng/ml (<200-235) Sodium 140 mmol/L mmol/L (136-145) Potassium 4.3 mmol/L mmol/L (3.5-5.1) Chloride 105 mmol/L mmol/L (98-107) Carbon Dioxide 27 mmol/L mmol/L (21-32) Anion Gap 8 (8-16) BUN 26 mg/dL H mg/dL (7-18) Creatinine 1.6 mg/dL H D mg/dL (0.7-1.3) Creat Clearance w eGFR 44.02 (>60) Random Glucose 100 mg/dL mg/dL (74-106) Calcium 8.8 mg/dL mg/dL (8.5-10.1) Total Bilirubin 0.3 mg/dL D mg/dL (0.2-1.0) AST 27 U/L D U/L (15-37) ALT 33 U/L D U/L (12-78) Alkaline Phosphatase 59 U/L U/L (45-117) Creatine Kinase 208 IU/L D IU/L (39-308) Creatine Kinase Index 1.9 % % (0.0-5.0) CK-MB (CK-2) 3.803 ng/ml H ng/ml (0.5-3.6) CK-MB (CK-2) Rel Index Cancelled Troponin I < 0.02 ng/ml ng/ml (0.00-0.05) Total Protein 7.2 g/dl g/dl (6.4-8.2) Albumin 3.6 g/dl g/dl (3.4-5.0) Triglycerides 74 mg/dL mg/dL (35-160) Cholesterol 202 mg/dL H mg/dL (50-200) Total LDL Cholesterol 137 mg/dL H mg/dL (5-100) HDL Cholesterol 62 mg/dL H mg/dL (40-60) TSH Blood Type Antibody Screen 09/08/16 09/08/16 09/08/16 15:45 17:30 23:15 WBC RBC Hgb Hct MCV MCH MCHC RDW Plt Count MPV Neutrophils % Lymphocytes % Monocytes % Eosinophils % Basophils % INR PTT (Actin FS) D-Dimer Sodium Potassium Chloride Carbon Dioxide Anion Gap BUN Creatinine Creat Clearance w eGFR Random Glucose Calcium Total Bilirubin AST ALT Alkaline Phosphatase Creatine Kinase Creatine Kinase Index CK-MB (CK-2) CK-MB (CK-2) Rel Index Troponin I < 0.02 ng/ml ng/ml < 0.02 ng/ml ng/ml (0.00-0.05) (0.00-0.05) Total Protein Albumin Triglycerides Cancelled Cholesterol Cancelled Total LDL Cholesterol Cancelled HDL Cholesterol Cancelled TSH Blood Type Antibody Screen 09/09/16 09/09/16 09/09/16 05:35 05:35 15:06 WBC 7.1 K/mm3 D K/mm3 (4.0-10.0) RBC 5.52 M/mm3 M/mm3 (4.00-5.60) Hgb 17.2 GM/dL H GM/dL (11.7-16.9) Hct 51.9 % H % (35.4-49) MCV 93.9 fl fl (80-96) MCH 31.2 pg pg (25.7-33.7) MCHC 33.2 g/dl g/dl (32.0-35.9) RDW 15.6 % % (11.9-15.9) Plt Count 214 K/MM3 K/MM3 (134-434) MPV 7.2 fl L fl (7.5-11.1) Neutrophils % 65.1 % % (42.8-82.8) Lymphocytes % 23.6 % D % (8-40) Monocytes % 9.6 % % (3.8-10.2) Eosinophils % 1.4 % % (0-4.5) Basophils % 0.3 % % (0-2.0) INR PTT (Actin FS) D-Dimer Sodium 141 mmol/L mmol/L (136-145) Potassium 4.4 mmol/L mmol/L (3.5-5.1) Chloride 103 mmol/L mmol/L (98-107) Carbon Dioxide 29 mmol/L mmol/L (21-32) Anion Gap 9 (8-16) BUN 19 mg/dL H D mg/dL (7-18) Creatinine 1.4 mg/dL H mg/dL (0.7-1.3) Creat Clearance w eGFR Random Glucose 98 mg/dL mg/dL (74-106) Calcium 8.8 mg/dL mg/dL (8.5-10.1) Total Bilirubin AST ALT Alkaline Phosphatase Creatine Kinase Creatine Kinase Index CK-MB (CK-2) CK-MB (CK-2) Rel Index Troponin I Total Protein Albumin Triglycerides Cholesterol Total LDL Cholesterol HDL Cholesterol TSH 2.05 uIU/ml uIU/ml (0.358-3.74) Blood Type Antibody Screen OBJECTIVE: ASSESSMENT AND PLAN: 1. Chest pain , atypical , HEART 2 - negative enzymes - echo without abnormality - MIBI is possible for reversible septal ischemia -transfer for [facility] 2. CKD - stable 3. Anxiety - stable Transfer to [facility] for [facility]
--- NOTE | 2016-09-10 10:20 | PN ---
Progress Note, Physician Chief Complaint: Pt A&Ox2; no chest pain; pacing the floor. History of Present Illness: The patient is a 61 year old white male, with a significant past medical history of testicular Ca and kidney Ca (2007; removal of <30%), OCD, renal insufficiency who presents to the emergency department with intermittent chest pain since yesterday that often radiates to his back. The patient reports having worsening chest pain since yesterday morning. Patient relates this morning having a near syncope episode, secondary to chest pain. He describes his pain as a crushing pain, and ranks his pain a 5/10 in pain intensity. He denies ever having these symptoms in the past. The patient does note having OCD and having an increase of stress/anxiety due to his mother's recent illness. He denies any recent travel. He denies any palpitations. He denies any recent injury/trauma to his chest. He denies any recent fevers, chills, headache or dizziness. He denies any recent nausea, vomit, diarrhea or constipation. He denies any recent shortness of breath. He denies any recent dysuria, frequency, urgency or hematuria. Allergies: Penicillins Past surgical history: None Recently. Social History: Nonsmoker. Denies EtOH use and recreational drug use. Primary Care Physician: Applied Researcher: - Current Medication List Current Medications: Active Medications Atorvastatin Calcium (Lipitor -) 40 mg PO HS [facility] Last Admin: 09/09/16 21:18 Dose: 40 mg Heparin Sodium (Porcine) (Heparin -) 5,000 unit SQ BID [facility] Last Admin: 09/09/16 21:18 Dose: 5,000 unit Metoprolol Tartrate (Lopressor -) 25 mg PO BID [facility] Last Admin: 09/09/16 21:18 Dose: 25 mg Non-Formulary Medication (Clomipramine Hcl [Anafranil]) 150 mg PO [facility] Polyethylene Glycol (Miralax (For Daily Use) -) 17 gm PO DAILY [facility] Last Admin: 09/09/16 12:45 Dose: 17 grams - Objective Vital Signs: Vital Signs Temperature 97.9 F 09/10/16 06:00 Pulse Rate 78 09/10/16 06:00 Respiratory Rate 20 09/10/16 06:00 Blood Pressure 137/76 09/10/16 06:00 O2 Sat by Pulse Oximetry (%) 100 09/09/16 22:00 Constitutional: Yes: Calm Eyes: Yes: WNL HENT: Yes: WNL Neck: Yes: Decreased ROM Cardiovascular: Yes: Regular Rate and Rhythm Respiratory: Yes: Regular Gastrointestinal: Yes: WNL ...Rectal Exam: Yes: Deferred Genitourinary: No: Anuria Musculoskeletal: Yes: WNL Edema: No Peripheral Pulses WNL: Yes Integumentary: Yes: WNL Neurological: Yes: WNL Psychiatric: Yes: WNL Labs: CBC, BMP 09/09/16 05:35 09/09/16 05:35 INR, PTT INR 0.93 (0.82-1.09) 09/08/16 11:30 - ....Imaging Other: Image Reviewed (telemetry: no arrhythmias) Problem List - Problems (1) Renal disease Assessment/Plan: hx renal CA with surgery. ?baseline Cr 1.4-1.6 Code(s): N28.9 - DISORDER OF KIDNEY AND URETER, UNSPECIFIED (2) Chest pain Assessment/Plan: stress MIBI + (small area inferoseptal ifarct with small, moderately intense periinfarct ischemia) Normal LVEF on ECHO; Discussed case with Dr. Ojeda and pt. He will undergo coronary angiogram. Code(s): R07.9 - CHEST PAIN, UNSPECIFIED Qualifiers: Chest pain type: other chest pain Qualified Code(s): R07.89 - Other chest pain; R07.8 - Other chest pain (3) HTN (hypertension) Assessment/Plan: on metoprolol. Code(s): I10 - ESSENTIAL (PRIMARY) HYPERTENSION (4) Hyperlipidemia Assessment/Plan: on atorvastatin Code(s): E78.5 - HYPERLIPIDEMIA, UNSPECIFIED
[2016-09-10] MEDS: METOPROLOL TARTRATE 25 MG TABLET (FP) PO SCH ×2 (10:23→21:01)
[2016-09-10] MEDS: HEPARIN NA (PORCINE) 5,000 UNITS/ML 1ML VIAL SQ SCH ×2 (10:23→21:00)
[2016-09-10] MEDS: POLYETHYLENE GLYCOL 3350 119 GM BTL PO SCH (10:25)
--- NOTE | 2016-09-10 11:28 | PN ---
Physical Exam: SUBJECTIVE: Patient seen and examined No acute events overnight. Patient denies chest pain this morning. OBJECTIVE: Vital Signs Period Temp Pulse Resp BP Sys/Charles Pulse Ox Last 24 Hr 96.8 F-98.7 F 68-90 18-20 120-137/73-81 97-100 GENERAL: Awake, alert, and fully oriented, in no acute distress. HEAD: Normal with no signs of trauma. EYES: Pupils equal, round and reactive to light, extraocular movements intact, sclera anicteric, conjunctiva clear. No lid lag. EARS, NOSE, THROAT: oropharynx clear without exudates. Moist mucous membranes. NECK: L cervical dystonia, supple without lymphadenopathy, JVD, or masses. LUNGS: Breath sounds equal, clear to auscultation bilaterally. No wheezes, and no crackles. No accessory muscle use. HEART: Regular rate and rhythm, normal S1 and S2 without murmur, rub or gallop. ABDOMEN: Soft, nontender, not distended, hypoactive bowel sounds, no guarding, no rebound, no masses. No hepatomegaly or splenomegaly. MUSCULOSKELETAL: Normal range of motion at all joints. No bony deformities or tenderness. No CVA tenderness. UPPER EXTREMITIES: 2+ radial pulses, warm, well-perfused. No cyanosis. No clubbing. No peripheral edema. LOWER EXTREMITIES: 2+ dorsalis pedis pulses, warm, well-perfused. No calf tenderness. No peripheral edema. NEUROLOGICAL: Normal speech. Gait not observed PSYCHIATRIC: Cooperative. Good eye contact. Appropriate mood and affect. SKIN: Warm, dry, normal turgor, no rashes or lesions noted, normal capillary refill. Laboratory Results - last 24 hr 09/09/16 15:06 TSH 2.05 Active Medications Generic Name Dose Route Start Last Admin Trade Name Freq PRN Reason Stop Dose Admin Atorvastatin Calcium 40 mg 09/08/16 22:00 09/09/16 21:18 Lipitor - PO 40 mg HS [facility] Administration Heparin Sodium (Porcine) 5,000 unit 09/08/16 22:00 09/10/16 10:23 Heparin - SQ Not Given BID [facility] Metoprolol Tartrate 25 mg 09/08/16 22:00 09/10/16 10:23 Lopressor - PO 25 mg BID [facility] Administration Non-Formulary Medication 150 mg 09/08/16 22:00 Clomipramine Hcl [Anafranil] PO HS [facility] Polyethylene Glycol 17 gm 09/08/16 15:00 09/10/16 10:25 Miralax (For Daily Use) - PO Not Given DAILY [facility] ASSESSMENT/PLAN: 61 year old M with no significant past medical history presenting with a 2 day history of crushing chest pain and feelings of passing out. 1. Atypical Chest Pain, + stress test -Placed in observation -Troponins negative x3 -Continue aspirin, metoprolol, Lipitor -Echo unremarkable -Stress test + -Patient is NPO, going for coronary cath. -Awaiting transfer to [facility]. -Patient being followed by cardiology (Dr. Ojeda/Annette) 2. Presyncope -Patient denies any more episodes -Patient was dehydrated -Encourage PO fluid intake. -Patient will be on telemetry to r/o arrythmia 3. HTN -135/81 -Continue Metoprolol 25 mg BID 4. CKD s/p kidney cancer and R partial nephrectomy -Baseline creatinine is 1.4-1.6 -Cr currently at baseline -Will trend Cr 5. Chronic constipation -On clomipramine, per pt causing constipation -Has BM once every 2 days -Continue miralax PO PRN 6. OCD -Stable -Continue clompiramine 7. FE/GI -Low fat/cholesterol diet 8. DVT ppx -Heparin 5000 units sq bid 9. Deconditioning ppx -No PT needed for this pt -Patient ambulating -Will consider PT evaluation if pt stops ambulating Visit type - Emergency Visit Emergency Visit: No - New Patient This patient is new to me today: No - Critical Care Critical Care patient: No
[2016-09-10] MEDS: ATORVASTATIN CA 40 MG TABLET (FP) PO SCH (21:00)
--- NOTE | 2016-09-11 08:01 | PN ---
Progress Note, Physician History of Present Illness: The patient is a 61 year old male, with a significant past medical history of testicular Ca and kidney Ca (2008; removal of <30%), OCD, renal insufficiency who presents to the emergency department with intermittent chest pain since yesterday that often radiates to his back. The patient reports having worsening chest pain since yesterday morning. Patient relates this morning having a near syncope episode, secondary to chest pain. He describes his pain as a crushing pain, and ranks his pain a 5/10 in pain intensity. He denies ever having these symptoms in the past. The patient does note having OCD and having an increase of stress/anxiety due to his mother's recent illness. He denies any recent travel. He denies any palpitations. He denies any recent injury/trauma to his chest. He denies any recent fevers, chills, headache or dizziness. He denies any recent nausea, vomit, diarrhea or constipation. He denies any recent shortness of breath. He denies any recent dysuria, frequency, urgency or hematuria. - Current Medication List Current Medications: Active Medications Atorvastatin Calcium (Lipitor -) 40 mg PO [facility] Last Admin: 09/10/16 21:00 Dose: 40 mg Heparin Sodium (Porcine) (Heparin -) 5,000 unit SQ BID [facility] Last Admin: 09/10/16 21:00 Dose: 5,000 unit Metoprolol Tartrate (Lopressor -) 25 mg PO BID [facility] Last Admin: 09/10/16 21:01 Dose: 25 mg Non-Formulary Medication (Clomipramine Hcl [Anafranil]) 150 mg PO [facility] Polyethylene Glycol (Miralax (For Daily Use) -) 17 gm PO DAILY [facility] Last Admin: 09/10/16 10:25 Dose: Not Given - Objective Vital Signs: Vital Signs Temperature 97.6 F 09/11/16 06:00 Pulse Rate 74 09/11/16 06:00 Respiratory Rate 18 09/11/16 06:00 Blood Pressure 125/71 09/11/16 06:00 O2 Sat by Pulse Oximetry (%) 96 09/11/16 01:00 Eyes: Yes: WNL, Conjunctiva Clear, EOM Intact HENT: Yes: WNL, Atraumatic, Normocephalic Neck: Yes: WNL, Supple, Trachea Midline Cardiovascular: Yes: WNL, Regular Rate and Rhythm Respiratory: Yes: WNL, Regular, CTA Bilaterally Gastrointestinal: Yes: WNL, Normal Bowel Sounds Genitourinary: Yes: WNL Musculoskeletal: Yes: WNL Extremities: Yes: WNL Edema: No Integumentary: Yes: WNL Neurological: Yes: WNL, Alert, Oriented ...Motor Strength: WNL Psychiatric: Yes: WNL Labs: INR, PTT INR 0.93 (0.82-1.09) 09/08/16 11:30 Assessment/Plan - Problems (1) Renal disease Assessment/Plan: hx renal CA with surgery. ?baseline Cr 1.4-1.6 Code(s): N28.9 - DISORDER OF KIDNEY AND URETER, UNSPECIFIED (2) Chest pain Assessment/Plan: stress MIBI + (small area inferoseptal ifarct with small, moderately intense periinfarct ischemia) Normal LVEF on ECHO; He will undergo coronary angiogram Tuesday [facility] Code(s): R07.9 - CHEST PAIN, UNSPECIFIED Qualifiers: Chest pain type: other chest pain Qualified Code(s): R07.89 - Other chest pain; R07.8 - Other chest pain (3) HTN (hypertension) Assessment/Plan: on metoprolol. Code(s): I10 - ESSENTIAL (PRIMARY) HYPERTENSION (4) Hyperlipidemia Assessment/Plan: on atorvastatin Code(s): E78.5 - HYPERLIPIDEMIA, UNSPECIFIED
--- NOTE | 2016-09-11 09:56 | PN ---
Physical Exam: SUBJECTIVE: Patient seen and examined. He has no complaints. He denies chest pain, SOB, palpitations. OBJECTIVE: Vital Signs Period Temp Pulse Resp BP Sys/Charles Pulse Ox Last 24 Hr 97.6 F-98.5 F 73-96 18-18 119-125/71-79 96 GENERAL: The patient is awake, alert, and fully oriented, in no acute distress. NECK: Supple. LUNGS: Breath sounds equal, clear to auscultation bilaterally, no wheezes, no crackles, no accessory muscle use. HEART: Regular rate and rhythm, S1, S2 without murmur, rub or gallop. ABDOMEN: Soft, nontender, nondistended, normoactive bowel sounds, no guarding, no rebound, no hepatosplenomegaly, no masses. EXTREMITIES: 2+ pulses, warm, well-perfused, no edema. Active Medications Generic Name Dose Route Start Last Admin Trade Name Freq PRN Reason Stop Dose Admin Atorvastatin Calcium 40 mg 09/08/16 22:00 09/10/16 21:00 Lipitor - PO 40 mg HS [facility] Administration Heparin Sodium (Porcine) 5,000 unit 09/08/16 22:00 09/10/16 21:00 Heparin - SQ 5,000 unit BID [facility] Administration Metoprolol Tartrate 25 mg 09/08/16 22:00 09/10/16 21:01 Lopressor - PO 25 mg BID [facility] Administration Non-Formulary Medication 150 mg 09/08/16 22:00 Clomipramine Hcl [Anafranil] PO HS [facility] Polyethylene Glycol 17 gm 09/08/16 15:00 09/10/16 10:25 Miralax (For Daily Use) - PO Not Given DAILY [facility] ASSESSMENT/PLAN: This is a 61-year-old man with a history of kidney and testicular cancers, OCD who presented to the ER with crushing chest pain and feelings of passing out x 2 days. 1. Chest pain secondary to CAD - Troponin negative x 3 - Continue Lopressor, Lipitor - Echo shows normal LV, normal wall motion, mild to moderate MR, mild TR - Stress test shows small inferoseptal infarct with mild [place]-infarct ischemia, LVEF 48% - Plan for cardiac catheterization at [facility] 09/13 2. Dehydration with near syncope - Resolved 3. HTN - Continue Lopressor 4. Stage 3 CKD - Stable 5. Chronic constipation - Continue Miralax as needed 6. OCD - Continue clompiramine Visit type - Emergency Visit Emergency Visit: Yes ED Registration Date: 09/10/16 Care time: The patient presented to the Emergency Department on the above date and was hospitalized for further evaluation of their emergent condition. - New Patient This patient is new to me today: Yes Date on this admission: 09/11/16 - Critical Care Critical Care patient: No - Discharge Referral Referred to [facility] Med [facility] No
[2016-09-11] MEDS: HEPARIN NA (PORCINE) 5,000 UNITS/ML 1ML VIAL SQ SCH ×2 (10:45→22:34)
[2016-09-11] MEDS: METOPROLOL TARTRATE 25 MG TABLET (FP) PO SCH ×2 (10:47→22:34)
[2016-09-11] MEDS: POLYETHYLENE GLYCOL 3350 119 GM BTL PO SCH (10:47)
[2016-09-11] MEDS: ATORVASTATIN CA 40 MG TABLET (FP) PO SCH (22:34)
[2016-09-11] MEDS: [UNRECOGNIZED DRUG - REMARK] PO SCH (22:35)
[2016-09-12 07:47] LABS: ANION GAP 5 (8-16); CALCIUM 8.9 mg/dL (8.5-10.1); CO2 30 mmol/L (21-32); CREATININE 1.7 mg/dL (0.7-1.3); GLUCOSE,RANDOM 83 mg/dL (74-106)
--- NOTE | 2016-09-12 09:14 | PN ---
Physical Exam: SUBJECTIVE: Patient seen and examined. No complaints. OBJECTIVE: Vital Signs Period Temp Pulse Resp BP Sys/Charles Pulse Ox Last 24 Hr 97.5 F-98.8 F 70-98 15-20 109-134/67-87 95-96 GENERAL: The patient is awake, alert, and fully oriented, in no acute distress. NECK: Supple. LUNGS: Breath sounds equal, clear to auscultation bilaterally, no wheezes, no crackles, no accessory muscle use. HEART: Regular rate and rhythm, S1, S2 without murmur, rub or gallop. ABDOMEN: Soft, nontender, nondistended, normoactive bowel sounds, no guarding, no rebound, no hepatosplenomegaly, no masses. EXTREMITIES: 2+ pulses, warm, well-perfused, no edema. Laboratory Results - last 24 hr 09/12/16 06:10 Sodium 139 Potassium 4.7 Chloride 104 Carbon Dioxide 30 Anion Gap 5 L BUN 30 H D Creatinine 1.7 H D Random Glucose 83 Calcium 8.9 Active Medications Generic Name Dose Route Start Last Admin Trade Name Karan PRN Reason Stop Dose Admin Atorvastatin Calcium 40 mg 09/08/16 22:00 09/11/16 22:34 Lipitor - PO 40 mg HS [facility] Administration Heparin Sodium (Porcine) 5,000 unit 09/08/16 22:00 09/11/16 22:34 Heparin - SQ 5,000 unit BID [facility] Administration Metoprolol Tartrate 25 mg 09/08/16 22:00 09/11/16 22:34 Lopressor - PO 25 mg BID [facility] Administration Pt's Own Med (Non- 150 mg 09/11/16 22:00 09/11/16 22:35 Form) (Clomipramine PO 150 mg Hcl [Anafranil] 150 HS [facility] Administration Mg) Polyethylene Glycol 17 gm 09/08/16 15:00 09/11/16 10:47 Miralax (For Daily Use) - PO 17 grams DAILY [facility] Administration ASSESSMENT/PLAN: This is a 61-year-old man with a history of kidney and testicular cancers, OCD who presented to the ER with crushing chest pain and feelings of passing out x 2 days. 1. Chest pain secondary to CAD - Continue Lopressor, Lipitor - Echo shows normal LV, normal wall motion, mild to moderate MR, mild TR - Stress test shows small inferoseptal infarct with mild [place]-infarct ischemia, LVEF 48% - Plan for cardiac catheterization at [facility] tomorrow 2. Dehydration with near syncope - Resolved 3. HTN - Continue Lopressor 4. Stage 3 CKD 5. Chronic constipation - Continue Miralax as needed 6. OCD - Continue clompiramine Visit type - Emergency Visit Emergency Visit: Yes ED Registration Date: 09/10/16 Care time: The patient presented to the Emergency Department on the above date and was hospitalized for further evaluation of their emergent condition. - New Patient This patient is new to me today: No - Critical Care Critical Care patient: No - Discharge Referral Referred to [facility] Med [facility] No
[2016-09-12] MEDS: POLYETHYLENE GLYCOL 3350 119 GM BTL PO SCH (10:56)
[2016-09-12] MEDS: HEPARIN NA (PORCINE) 5,000 UNITS/ML 1ML VIAL SQ SCH ×2 (10:59→21:35)
[2016-09-12] MEDS: METOPROLOL TARTRATE 25 MG TABLET (FP) PO SCH ×2 (10:59→21:35)
--- NOTE | 2016-09-12 11:43 | PN ---
Progress Note, Physician History of Present Illness: The patient is a 61 year old male, with a significant past medical history of testicular Ca and kidney Ca (2008; removal of <30%), OCD, renal insufficiency who presents to the emergency department with intermittent chest pain since yesterday that often radiates to his back. The patient reports having worsening chest pain since yesterday morning. Patient relates this morning having a near syncope episode, secondary to chest pain. He describes his pain as a crushing pain, and ranks his pain a 5/10 in pain intensity. He denies ever having these symptoms in the past. The patient does note having OCD and having an increase of stress/anxiety due to his mother's recent illness. He denies any recent travel. He denies any palpitations. He denies any recent injury/trauma to his chest. He denies any recent fevers, chills, headache or dizziness. He denies any recent nausea, vomit, diarrhea or constipation. He denies any recent shortness of breath. He denies any recent dysuria, frequency, urgency or hematuria. - Current Medication List Current Medications: Active Medications Atorvastatin Calcium (Lipitor -) 40 mg PO [facility] Last Admin: 09/11/16 22:34 Dose: 40 mg Heparin Sodium (Porcine) (Heparin -) 5,000 unit SQ BID [facility] Last Admin: 09/12/16 10:59 Dose: 5,000 unit Metoprolol Tartrate (Lopressor -) 25 mg PO BID [facility] Last Admin: 09/12/16 10:59 Dose: 25 mg Pt's Own Med (Non- Form) (Clomipramine Hcl [Anafranil] 150 Mg) 150 mg PO [facility] Last Admin: 09/11/16 22:35 Dose: 150 mg Polyethylene Glycol (Miralax (For Daily Use) -) 17 gm PO DAILY [facility] Last Admin: 09/12/16 10:56 Dose: Not Given - Objective Vital Signs: Vital Signs Temperature 98.1 F 09/12/16 11:01 Pulse Rate 90 09/12/16 11:01 Respiratory Rate 18 09/12/16 11:01 Blood Pressure 128/77 09/12/16 11:01 O2 Sat by Pulse Oximetry (%) 95 09/11/16 23:00 Eyes: Yes: WNL, Conjunctiva Clear, EOM Intact HENT: Yes: WNL, Atraumatic, Normocephalic Neck: Yes: WNL, Supple, Trachea Midline Cardiovascular: Yes: WNL, Regular Rate and Rhythm Respiratory: Yes: WNL, Regular, CTA Bilaterally Gastrointestinal: Yes: WNL, Normal Bowel Sounds Genitourinary: Yes: WNL Musculoskeletal: Yes: WNL Extremities: Yes: WNL Edema: No Integumentary: Yes: WNL Neurological: Yes: WNL, Alert, Oriented ...Motor Strength: WNL Psychiatric: Yes: WNL Labs: CBC, BMP 09/12/16 06:10 INR, PTT INR 0.93 (0.82-1.09) 09/08/16 11:30 Assessment/Plan - Problems (1) Renal disease Assessment/Plan: hx renal CA with surgery. ?baseline Cr 1.4-1.6 cr up to 1.7 will start IVF prior to c. cath Code(s): N28.9 - DISORDER OF KIDNEY AND URETER, UNSPECIFIED (2) Chest pain Assessment/Plan: stress MIBI + (small area inferoseptal ifarct with small, moderately intense periinfarct ischemia) Normal LVEF on ECHO; He will undergo coronary angiogram Tuesday [facility] Code(s): R07.9 - CHEST PAIN, UNSPECIFIED Qualifiers: Chest pain type: other chest pain Qualified Code(s): R07.89 - Other chest pain; R07.8 - Other chest pain (3) HTN (hypertension) Assessment/Plan: on metoprolol. Code(s): I10 - ESSENTIAL (PRIMARY) HYPERTENSION (4) Hyperlipidemia Assessment/Plan: on atorvastatin Code(s): E78.5 - HYPERLIPIDEMIA, UNSPECIFIED
[2016-09-12] MEDS: SODIUM CHLORIDE 0.45% 1,000 ML IV SCH ×2 (13:12→23:54)
[2016-09-12] MEDS: ATORVASTATIN CA 40 MG TABLET (FP) PO SCH (21:35)
[2016-09-12] MEDS: [UNRECOGNIZED DRUG - REMARK] PO SCH (21:38)
[2016-09-13 07:13] LABS: ANION GAP 5 (8-16); CALCIUM 8.5 mg/dL (8.5-10.1); CO2 29 mmol/L (21-32); CREATININE 1.5 mg/dL (0.7-1.3); GLUCOSE,RANDOM 85 mg/dL (74-106)
[2016-09-13] MEDS ORDERED: PT OWN MED DRAWER 7, Y5N ONE (09:42)
[2016-09-13] MEDS: METOPROLOL TARTRATE 25 MG TABLET (FP) PO SCH (09:51)
[2016-09-13] MEDS: HEPARIN NA (PORCINE) 5,000 UNITS/ML 1ML VIAL SQ SCH (09:51)
[2016-09-13] MEDS: POLYETHYLENE GLYCOL 3350 119 GM BTL PO SCH (09:52)
[2016-09-13 09:54] VITALS: BP 125/64; PULSE 92; TEMP 98
--- NOTE | 2016-09-13 11:54 | PN ---
Progress Note, Physician History of Present Illness: The patient is a 61 year old male, with a significant past medical history of testicular Ca and kidney Ca (2008; removal of <30%), OCD, renal insufficiency who presents to the emergency department with intermittent chest pain since yesterday that often radiates to his back. The patient reports having worsening chest pain since yesterday morning. Patient relates this morning having a near syncope episode, secondary to chest pain. He describes his pain as a crushing pain, and ranks his pain a 5/10 in pain intensity. He denies ever having these symptoms in the past. The patient does note having OCD and having an increase of stress/anxiety due to his mother's recent illness. He denies any recent travel. He denies any palpitations. He denies any recent injury/trauma to his chest. He denies any recent fevers, chills, headache or dizziness. He denies any recent nausea, vomit, diarrhea or constipation. He denies any recent shortness of breath. He denies any recent dysuria, frequency, urgency or hematuria. - Current Medication List Current Medications: Active Medications Atorvastatin Calcium (Lipitor -) 40 mg PO HS [facility] Last Admin: 09/12/16 21:35 Dose: 40 mg Heparin Sodium (Porcine) (Heparin -) 5,000 unit SQ BID [facility] Last Admin: 09/13/16 09:51 Dose: 5,000 unit Sodium Chloride (1/2 Normal Saline) 1,000 mls @ 100 mls/hr IV ASDIR [facility] Last Admin: 09/12/16 23:54 Dose: 100 mls/hr Metoprolol Tartrate (Lopressor -) 25 mg PO BID [facility] Last Admin: 09/13/16 09:51 Dose: 25 mg Pt's Own Med (Non- Form) (Clomipramine Hcl [Anafranil] 150 Mg) 150 mg PO [facility] Last Admin: 09/12/16 21:38 Dose: 150 mg Polyethylene Glycol (Miralax (For Daily Use) -) 17 gm PO DAILY [facility] Last Admin: 09/13/16 09:52 Dose: Not Given - Objective Vital Signs: Vital Signs Temperature 98 F 09/13/16 09:53 Pulse Rate 92 H 09/13/16 09:53 Respiratory Rate 18 09/13/16 09:53 Blood Pressure 125/64 09/13/16 09:53 O2 Sat by Pulse Oximetry (%) 95 09/12/16 21:00 Eyes: Yes: WNL, Conjunctiva Clear, EOM Intact HENT: Yes: WNL, Atraumatic, Normocephalic Neck: Yes: WNL, Supple, Trachea Midline Cardiovascular: Yes: WNL, Regular Rate and Rhythm Respiratory: Yes: WNL, Regular, CTA Bilaterally Gastrointestinal: Yes: WNL, Normal Bowel Sounds Genitourinary: Yes: WNL Musculoskeletal: Yes: WNL Extremities: Yes: WNL Edema: No Integumentary: Yes: WNL Neurological: Yes: WNL, Alert, Oriented ...Motor Strength: WNL Psychiatric: Yes: WNL Labs: CBC, BMP 09/13/16 06:00 INR, PTT INR 0.93 (0.82-1.09) 09/08/16 11:30 Assessment/Plan - Problems (1) Renal disease Assessment/Plan: hx renal CA with surgery. ?baseline Cr 1.4-1.6 cr up to 1.7 refused IVF prior to c. cath Code(s): N28.9 - DISORDER OF KIDNEY AND URETER, UNSPECIFIED (2) Chest pain Assessment/Plan: stress MIBI + (small area inferoseptal ifarct with small, moderately intense periinfarct ischemia) Normal LVEF on ECHO; He will undergo coronary angiogram Tuesday [facility] Code(s): R07.9 - CHEST PAIN, UNSPECIFIED Qualifiers: Chest pain type: other chest pain Qualified Code(s): R07.89 - Other chest pain; R07.8 - Other chest pain (3) HTN (hypertension) Assessment/Plan: on metoprolol. Code(s): I10 - ESSENTIAL (PRIMARY) HYPERTENSION (4) Hyperlipidemia Assessment/Plan: on atorvastatin Code(s): E78.5 - HYPERLIPIDEMIA, UNSPECIFIED
--- NOTE | 2016-09-13 14:28 | PN ---
Teaching Attending Note Name of Resident: Luis Enrique Epperson ATTENDING PHYSICIAN STATEMENT I saw and evaluated the patient. I reviewed the resident's note and discussed the case with the resident. I agree with the resident's findings and plan as documented. SUBJECTIVE: OBJECTIVE: Vital Signs Period Temp Pulse Resp BP Sys/Charles Pulse Ox Last 24 Hr 97.6 F-98.4 F 70-92 16-18 111-134/64-83 95 ASSESSMENT AND PLAN:
--- NOTE | 2016-09-13 14:37 | PN ---
Physical Exam: SUBJECTIVE: Patient seen and examined OBJECTIVE: Vital Signs Period Temp Pulse Resp BP Sys/Charles Pulse Ox Last 24 Hr 97.6 F-98.4 F 70-92 16-18 111-134/64-83 95 GENERAL: The patient is awake, alert, and fully oriented, in no acute distress. HEAD: Normal with no signs of trauma. EYES: PERRL, extraocular movements intact, sclera anicteric, conjunctiva clear. No ptosis. ENT: Ears normal, nares patent, oropharynx clear without exudates, moist mucous membranes. NECK: Trachea midline, full range of motion, supple. LUNGS: Breath sounds equal, clear to auscultation bilaterally, no wheezes, no crackles, no accessory muscle use. HEART: Regular rate and rhythm, S1, S2 without murmur, rub or gallop. ABDOMEN: Soft, nontender, nondistended, normoactive bowel sounds, no guarding, no rebound, no hepatosplenomegaly, no masses. EXTREMITIES: 2+ pulses, warm, well-perfused, no edema. NEUROLOGICAL: Cranial nerves II through XII grossly intact. Normal speech, gait not observed. PSYCH: Normal mood, normal affect. SKIN: Warm, dry, normal turgor, no rashes or lesions noted Laboratory Results - last 24 hr 09/13/16 06:00 Sodium 140 Potassium 4.3 Chloride 106 Carbon Dioxide 29 Anion Gap 5 L BUN 23 H D Creatinine 1.5 H Random Glucose 85 Calcium 8.5 Active Medications Generic Name Dose Route Start Last Admin Trade Name Freq PRN Reason Stop Dose Admin Atorvastatin Calcium 40 mg 09/08/16 22:00 09/12/16 21:35 Lipitor - PO 40 mg HS [facility] Administration Heparin Sodium (Porcine) 5,000 unit 09/08/16 22:00 09/13/16 09:51 Heparin - SQ 5,000 unit BID [facility] Administration Sodium Chloride 1,000 mls @ 100 mls/hr 09/12/16 11:45 09/12/16 23:54 1/2 Normal Saline IV 100 mls/hr ASDIR [facility] Administration Metoprolol Tartrate 25 mg 09/08/16 22:00 09/13/16 09:51 Lopressor - PO 25 mg BID [facility] Administration Pt's Own Med (Non- 150 mg 09/11/16 22:00 07/16/17 21:38 Form) (Clomipramine PO 150 mg Hcl [Anafranil] 150 HS [facility] Administration Mg) Polyethylene Glycol 17 gm 09/08/16 15:00 09/13/16 09:52 Miralax (For Daily Use) - PO Not Given DAILY [facility] ASSESSMENT/PLAN:
--- NOTE | 2016-09-13 16:49 | DS ---
Physical Exam: LABS Laboratory Results - last 24 hr Abnormal Lab Results 09/13/16 06:00 Anion Gap 5 L BUN 23 H D Creatinine 1.5 H Last Vital Signs Temp Pulse Resp BP Pulse Ox 98 F 92 H 18 125/64 95 09/13/16 09:53 09/13/16 09:53 09/13/16 09:53 09/13/16 09:53 09/13/16 09:50 HOSPITAL COURSE: Date of Admission:09/10/16 Date of Discharge: 09/13/16 61 year old M with no significant past medical history presented with a 2 day history of crushing chest pain and feelings of passing out admitted for r/o acs. Patient had a normal EKG and trops negative x3. Patient underwent nuclear stress test, which was positive for small inferoseptal infarct. Patient was then transferred to [facility] for coronary cath. Minutes to complete discharge: 30 Discharge Summary Reason For Visit: CHEST PAIN Current Active Problems Chest pain (Acute) HTN (hypertension) (Acute) Hyperlipidemia (Acute) Renal disease (Chronic) Condition: Stable - Instructions Diet, Activity, Other Instructions: You were in the hospital due to chest pain. Your stress test was positive for a small area of the heart that may not be receiving adequate blood flow. You will be transferred to [facility] for more testing and possibly putting a stent in your heart vessels. Please start taking Lipitor 40 mg by mouth daily once you leave [facility]. Please follow up with your primary care doctor (Dr. Milian) in 1 week Please follow up with your president practicing urologist (Dr. Ojeda) in 1 week If you have new chest pain, shortness of breath, or any new symptoms please come back to the hospital immediately. Referrals: Jose Ojeda MD [Staff Physician] - Colleen Milian MD [Primary Care Provider] - Disposition: TRANSFER ACUTE CARE/OTHER HOSP - Home Medications Comprehensive Discharge Medication List: Ambulatory Orders Clomipramine HCl [Anafranil] 150 mg PO HS 04/01/16 Atorvastatin Ca [Lipitor] 40 mg PO HS tablet 09/10/16 This patient is new to me today: No Emergency Visit: No Critical Care patient: No - Discharge Referral Referred to [facility] Med [facility] No
== END 2016-09-13 15:45 | disposition short-term general hospital (02) | DRG 190 ==
LOC: JER 10:11 → JERBED 13:02 → UNDOADMOB 13:02 → J4S 14:05 → JERBED 14:05 → OBSVTOIN 14:48 → INTOOBSV 14:48 → JERBED 15:21 → J4S 15:21 → OBSVTOIN 09-10 14:52
PROVIDERS: ADMIT Internal Medicine; ATTEND Internal Medicine
DX: I21.29 ST elevation (STEMI) myocardial infarction involving other sites (principal); I25.10 Atherosclerotic heart disease of native coronary artery without angina pectoris; I24.9 Acute ischemic heart disease, unspecified; I12.9 Hypertensive chronic kidney disease with stage 1 through stage 4 chronic kidney disease, or unspecified chronic kidney disease; N18.3 Chronic kidney disease, stage 3 (moderate); E78.5 Hyperlipidemia, unspecified; N28.9 Disorder of kidney and ureter, unspecified; E86.0 Dehydration; R55 Syncope and collapse; K59.00 Constipation, unspecified; R07.89 Other chest pain
CPT/HCPCS: 36415; 71010-TC; 78452-TC; 80048; 80053; 80061; 82550; 82553; 83721; 84443; 84484; 85025; 85379; 85610; 85730; 86850; 86900; 86901; 93005; 93010; 93017; 93306-TC; 99284-25; A9502; G0378; J1644

== ENCOUNTER 2017-09-14 13:54 | Day surgery (SDC) | payer OTHER ==
[2017-09-14 14:30] VITALS: BMI 24.0
[2017-09-14] MEDS ORDERED: PROPOFOL 20 ML ONE ×2 (15:22)
[2017-09-14] MEDS ORDERED: MIDAZOLAM HCL 2 MG/2 ML SINGLE DOSE VIAL ONE ×2 (15:24→15:47)
[2017-09-14] MEDS ORDERED: LIDOCAINE HCL 2% (50ML VIAL) INF ONE ×2 (16:03)
[2017-09-14] MEDS ORDERED: oxyCODONE HCL 5 MG TABLET PO PRN (16:23)
[2017-09-14] MEDS ORDERED: ONDANSETRON 4 MG/2 ML VIAL IVPUSH PRN (16:23)
[2017-09-14] MEDS ORDERED: LACTATED RINGERS SOLUTION 1,000 ML IV SCH (16:30)
[2017-09-14 16:47] VITALS: TEMP 97.7
[2017-09-14 17:13] VITALS: PULSE 76
[2017-09-14 17:40] VITALS: BP 116/76
--- NOTE | 2017-09-15 12:20 | OP ---
DATE OF OPERATION: 09/14/2017 PREOPERATIVE DIAGNOSIS: Left carpal tunnel syndrome. POSTOPERATIVE DIAGNOSIS: Left carpal tunnel syndrome. OPERATIVE PROCEDURE: Left carpal tunnel release. ANESTHESIA: Local with sedation. COMPLICATIONS: None. ESTIMATED BLOOD LOSS: Minimal. INDICATIONS FOR PROCEDURE: The patient is a 62-year-old male with the above finding, indicated for operative treatment. Risks, benefits and alternatives were discussed with the patient at length after informed consent was obtained. PROCEDURE: After proper identification of patient and correct operative site, the patient was brought to the operating room and placed supine on the table with prominences well-padded. Sedation was given by the anesthesiologist. The left upper extremity was prepped and draped in the usual sterile fashion. Local anesthesia was provided by myself with 2% lidocaine. Esmarch bandage used to exsanguinate the left upper extremity. Tourniquet was inflated to 250 mmHg. A longitudinal incision was made over the proximal aspect of the palm. The incision was taken sharply through the skin with blunt and sharp dissection of the subcutaneous tissues. Palmar fascia was divided longitudinally. Transverse carpal ligament along with the distal 4 cm of antebrachial fascia were divided longitudinally under direct visualization with loupe magnification. This provided complete release of the median nerve at the wrist. The wound was irrigated with saline and repaired with a 5-0 nylon suture. Sterile dressings were applied. Patient was reversed from anesthesia and brought to the recovery room in stable condition having tolerated the procedure well. JET OBRIEN M.D. [id number]
== END 2017-09-14 18:05 | disposition home or self-care (01) ==
LOC: FASU 13:54
PROVIDERS: ATTEND Orthopaedic Surgery Hand Surgery
PROC: 01N50ZZ Release Median Nerve, Open Approach (ICD-10-PCS; principal; 2017-09-14 15:30)
DX: G56.02 Carpal tunnel syndrome, left upper limb (principal)
CPT/HCPCS: 94760

== ENCOUNTER 2018-01-14 17:33 | Emergency (ER) | payer OTHER ==
[2018-01-14 17:38] VITALS: BMI 24.4
[2018-01-14] MEDS ORDERED: OXYMETAZOLINE 0.05% NASAL SOLUTION 15 ML BOTTLE NS ONE (19:13)
--- NOTE | 2018-01-14 19:37 | PDOC ---
Attending Attestation - HPI HPI: 01/14/18 21:24 The patient is a 62-year-old female with past medical history significant for kidney CA (2005 s/p R partial nephrectomy), testicular CA (diagnosed 2001) and cervical dystonia (1999) associated with OCD (no improvement with baclofen, Botox A, B injection), and cardiac stents (x3 on ASA Plavix) presents to the emergency department with epistaxis. Per patient, since starting on blood thinners August of 2016, hes been having episodes of nose bleeding that would self-resolve. The patient reports hes been having a cold the last couple of days and have been blowing his nose frequently. The patient reports since 8:30 am today hes been bleeding from the L. nare, without resolving. The patient reports this episode is the worse compared to the rest of the prior incidents. Allergies: Penicillins PCP: Dr. Colleen Milian. - Physicial Exam PE: 01/14/18 21:54 GENERAL: Awake, alert, and fully oriented, in no acute distress HEAD: No signs of trauma EYES: PERRLA, EOMI, sclera anicteric, conjunctiva clear ENT: +No nasal bleeding during the physical exam, large clot removed from the L. nare. Lateral aspect of the L. nare abridged and red. Not actively bleeding, no cuts noted inside the nose. +R. nare abrasion on the septum, bled a little but resolved. Auricles normal inspection, hearing grossly normal, oropharynx clear without exudates. Moist mucosa NECK: +Large sternocleidomastoid muscle large muscle spasm, and torticollis head turned to the right, chronic in nature. LUNGS: Breath sounds equal, clear to auscultation bilaterally. No wheezes, and no crackles HEART: Regular rate and rhythm, normal S1 and S2, no murmurs, rubs or gallops ABDOMEN: Soft, nontender. No guarding, no rebound. No masses EXTREMITIES: Normal range of motion, no edema. No clubbing or cyanosis. No cords , erythema, or tenderness BACK: No midline spinal tenderness in cervical/thoracic/lumbar region NEUROLOGICAL: Normal speech, normal gait, normal reflexes and tone SKIN: Warm, Dry, normal turgor, no rashes or lesions noted. - Medical Decision Making 01/14/18 21:24 Documentation prepared by Karen Cooper, acting as medical radiation dosimetrist for Winter Beck MD. <Karen Cooper - Last Filed: 01/14/18 22:34> - Resident Resident Name: Tk Riley - ED Attending Attestation I have performed the following: I have examined & evaluated the patient, The case was reviewed & discussed with the resident, I agree w/resident's findings & plan - Medical Decision Making 01/14/18 21:35 Pt has raw area inside the left nare lateral aspect. Pt has been blowing his nose and rubbing with tissues. Now with bleed that has slowed but still not hemostatic. Pressure did not help. Tranxemic Acid helped. We are applying pressure with tongue depressor clip that we created with tape. Pt will be discharged with ENT follow up as needed. Continue with plavix and asa as normal. 01/14/18 22:13 Pt's nose continued to bleed. 01/16/18 00:10 Rhino rocket finally placed and pt sent home; follow with ENT. <Winter Beck - Last Filed: 01/16/18 00:11>
[2018-01-14] MEDS ORDERED: TRANEXAMIC ACID 1000 MG/10 ML VIAL IVPB ONE ×2 (19:55→20:45)
--- NOTE | 2018-01-14 20:44 | PDOC ---
History of Present Illness <Winter Beck - Last Filed: 01/14/18 22:25> - General History Source: Patient Exam Limitations: No Limitations - History of Present Illness Initial Comments: 62 y/o male presenting to [facility] ER via private auto complaining of a epistaxis from left nostril starting at approx. 08:30 this morning (14 Jan 2018). States he has been coughing and blowing his nose frequently over the past several days. Is anticoagulated on ASA and Plavix s/p cardiac stenting. Endorses a history of infrequent nosebleeds while on these medications. Episodes are usually brief and resolve with direct pressure. He attempted pressure but has been unable to tamponade the bleeding. Denies dizziness, lightheadedness, or syncope. PCP: Dr. Colleen Milian [facility] Hx: - CAD S/p stenting - Testicular Cancer - R Renal Mass s/p resection - Obsessive Compulsive Disorder - Cervical Dystonia - Seasonal Allergies Surgical Hx: - Bilateral orchiectomy - R Partial Nephrectomy <Tk Riley - Last Filed: 01/14/18 22:40> - General Chief Complaint: Nasal Bleeding Stated Complaint: NASAL BLEEDING Time Seen by Provider: 01/14/18 18:53 Past History <Winter Beck - Last Filed: 01/14/18 22:25> - Past Medical History Anemia: No Asthma: (SEASONAL ALLERGIES WITH WHEEZING) Cancer: Yes (TESTICULAR) Cardiac Disorders: Yes (CAD) CVA: No COPD: No CHF: No Dementia: No Diabetes: No GI Disorders: No Disorders: Yes (LESION REMOVED FROM RIGHT KIDNEY) HTN: Yes Hypercholesterolemia: Yes Liver Disease: No Seizures: No Thyroid Disease: No - Surgical History Abdominal Surgery: No Appendectomy: No Cardiac Surgery: Yes (stent placement x3) Cholecystectomy: No Lung Surgery: No Neurologic Surgery: No Orthopedic Surgery: Yes (ARTHROSCOPY RIGHT '06) - Suicide/Smoking/Psychosocial Hx Smoking History: Never smoked Have you smoked in the past 12 months: No Information on smoking cessation initiated: No Hx Alcohol Use: No Drug/Substance Use Hx: No Substance Use Type: None Hx Substance Use Treatment: No <Tk Riley - Last Filed: 01/14/18 22:40> - Past Medical History Allergies/Adverse Reactions: Allergies Allergy/AdvReac Type Severity Reaction Status Date / Time Penicillins Allergy Mild Cough Verified 01/14/18 17:38 Home Medications: Ambulatory Orders Clomipramine HCl [Anafranil] 150 mg PO HS 04/01/16 Atorvastatin Ca [Lipitor] 40 mg PO HS tablet 09/10/16 Aspirin [ASA -] 81 mg PO DAILY 09/05/17 Clopidogrel Bisulfate [Plavix] 75 mg PO DAILY 09/05/17 Metoprolol Tartrate 25 mg PO BID 09/05/17 Ranolazine [Ranexa] 500 mg PO BID 09/05/17 Review of Systems - Review of Systems Able to Perform ROS?: Yes Comments:: In addition to that documented in the HPI above, the additional ROS was obtained : Constitutional: Denies fevers or chills Eyes: Denies vision changes ENMT: Denies sore throat CV: Denies chest pain Resp: Denies SOB GI: Denies vomiting or diarrhea <Tk Riley - Last Filed: 01/14/18 22:40> *Physical Exam - Vital Signs Last Vital Signs Temp Pulse Resp BP Pulse Ox 97.8 F 90 18 147/79 99 01/14/18 17:35 01/14/18 17:35 01/14/18 17:35 01/14/18 17:35 01/14/18 17:35 <Winter Beck - Last Filed: 01/14/18 22:25> - Vital Signs Last Vital Signs Temp Pulse Resp BP Pulse Ox 97.8 F 90 18 147/79 99 01/14/18 17:35 01/14/18 17:35 01/14/18 17:35 01/14/18 17:35 01/14/18 17:35 - Physical Exam Comments: Constitutional: Well-developed, well-nourished male in no acute distress or obvious discomfort. Found sitting upright on edge of hospital bed. Small amount of dried blood on shirt. Numerous bloody tissues (not saturated) at side. Alert and oriented x4. Answered all questions appropriately and completely. Speech was non-labored, non-pressured. Head: Normocephalic. No obvious external signs of trauma. Eyes: Sclerae white. Conjunctiva moist, pink, and not injected. EARS: Hearing grossly intact. NOSE: Dried blood below left nare. Stiven blood pooling inside the left nare without obvious source. Clot on tissue after pt forcefully exhaled. Right nare is well appearing without active bleeding. THROAT: Oral cavity and pharynx normal. No inflammation, swelling, exudate, or lesions. No blood appreciated. Cardiovascular: Regular rate and regular rhythm. No murmur, rubs, clicks, or gallops. Peripheral pulses: Radial pulses full. Respiratory: Breathing unlabored. Equal chest rise and fall. Clear to auscultation bilaterally. No stridor, no wheezing, no rhonchi. Neuro: Alert and oriented. Moving all four extremities spontaneously. Skin: [place], warm, dry, and intact. No bruising, rashes, or other lesions. Psych: Affect: appropriate. Mood: normal. <Tk Riley - Last Filed: 01/14/18 22:40> ED Treatment Course - LABORATORY CBC & Chemistry Diagram: 01/14/18 21:52 - ADDITIONAL ORDERS Additional order review: 01/14/18 21:52 RBC 4.55 MCV 96.9 H MCHC 33.0 RDW 14.4 MPV 6.8 L Neutrophils % 68.9 Lymphocytes % 15.3 D Monocytes % 10.1 Eosinophils % 5.3 H D Basophils % 0.4 - Medications Given in the ED: ED Medications Discontinued Medications Generic Name Dose Route Start Last Admin Trade Name Freq PRN Reason Stop Dose Admin Oxymetazoline HCl 1 spray 01/14/18 19:13 01/14/18 19:43 Afrin - NS 01/14/18 19:14 1 spray ONCE ONE Administration Tranexamic Acid 500 mg 01/14/18 19:55 01/14/18 20:41 Tranexamic Acid - IVPB 01/14/18 19:56 500 mg ONCE ONE Administration Tranexamic Acid 1,000 mg 01/14/18 20:45 01/14/18 20:53 Tranexamic Acid - IVPB 01/14/18 20:46 500 mg ONCE ONE Administration <Winter Beck - Last Filed: 01/14/18 22:25> - LABORATORY CBC & Chemistry Diagram: 01/14/18 21:52 - Medications Given in the ED: ED Medications Discontinued Medications Generic Name Dose Route Start Last Admin Trade Name Freq PRN Reason Stop Dose Admin Oxymetazoline HCl 1 spray 01/14/18 19:13 01/14/18 19:43 Afrin - NS 01/14/18 19:14 1 spray ONCE ONE Administration Tranexamic Acid 500 mg 01/14/18 19:55 01/14/18 20:41 Tranexamic Acid - IVPB 01/14/18 19:56 500 mg ONCE ONE Administration <BishopTk - Last Filed: 01/14/18 22:40> Medical Decision Making - Medical Decision Making *Reviewed vital signs, nursing notes, and prior visit documentation (if available). 62 y/o male with epistaxis from left nares. Suspect secondary to forceful exhalation. Anticoagulated. No reported systemic symptoms. Afebrile. Vitals unremarkable for hypotension or tachycardia. Physical exam as described above. Will administered Afrin to the nare and instruct pt to hold direct pressure. Direct pressure applied after Afrin for approx. 15 min without resolution. Direct pressure again applied for approx. 20 min without resolution. Second Afrin dose administered. TXA applied to sterile 4x4, which was inserted straight back into the left nare for 20 min. Nasal clamp applied for approx. 40 min. Bleeding now from both right and left. Unable to visualize source. Pt spit up a large clot. 22:[address] Bateman at . Directed to call after hours life. Message left at answering service automatic voicemail at . Nose continues to bleed. Rhino rocket placed. Bleeding appears to be tamponaded. Pts H/H within normal range. Safe for discharge home. Still awaiting call back from chef's assistant. Discussed physical exam findings with patient. Answered all questions. Provided return precautions. Pt expressed verbal understanding and agreement with plan to discharge home with outpatient ENT follow up on Tuesday. <Tk Riley - Last Filed: 01/14/18 22:40> *DC/Admit/Observation/Transfer - Discharge Dispostion Decision to Admit order: No <Winter Beck - Last Filed: 01/14/18 22:25> - Discharge Dispostion Decision to Admit order: No <Tk Riley - Last Filed: 01/14/18 22:40> Diagnosis at time of Disposition: Anterior epistaxis - Discharge Dispostion Condition at time of disposition: Stable - Referrals Referrals: Colleen Milian MD [Primary Care Provider] - Jose Sanchez MD [Staff Physician] - - Patient Instructions Printed Discharge Instructions: DI for Nosebleed Additional Instructions: Your nose bleed was controlled with an anterior Rhino rocket. This needs to remain in place for the next two days. Please follow up with Dr. Sanchez, an ENT doctor, on Tuesday (16 Jan 2018). You will need to call to make an appointment. The number is included in this packet. Continue to take all of your medications as prescribed by your doctor. No changes were made to your regimen today. Go to the nearest emergency department if your symptoms worsen or you feel as though you need additional emergency evaluation. Print Language: MALIAN - Post Discharge Activity Forms/Work/School Notes: Back to Work
[2018-01-14 21:59] LABS: BASO % 0.4 % (0-2.0); EOS % 5.3 % (0-4.5); HEMATOCRIT 44.1 % (35.4-49); HEMOGLOBIN 14.5 GM/dL (11.7-16.9); LYMPH % 15.3 % (8-40); MEAN CELL VOLUME 96.9 fl (80-96); MEAN PLT VOLUME 6.8 fl (7.5-11.1); MONO % 10.1 % (3.8-10.2); NEUT % 68.9 % (42.8-82.8); PLATELET COUNT 202 K/MM3 (134-434); RBC 4.55 M/mm3 (4.00-5.60); RDW 14.4 % (11.9-15.9)
[2018-01-14 23:00] VITALS: BP 135/82; PULSE 98; TEMP 98.9
== END 2018-01-14 23:00 | disposition home or self-care (01) ==
LOC: JER 17:33
PROC: 093K7ZZ Control Bleeding in Nasal Mucosa and Soft Tissue, Via Natural or Artificial Opening (ICD-10-PCS; principal; 2018-01-14)
DX: R04.0 Epistaxis (principal); I25.10 Atherosclerotic heart disease of native coronary artery without angina pectoris; I10 Essential (primary) hypertension; Z95.5 Presence of coronary angioplasty implant and graft; Z79.01 Long term (current) use of anticoagulants; Z79.82 Long term (current) use of aspirin; E78.00 Pure hypercholesterolemia, unspecified; F42.9 Obsessive-compulsive disorder, unspecified; G24.3 Spasmodic torticollis; Z85.47 Personal history of malignant neoplasm of testis; Z90.79 Acquired absence of other genital organ(s); Z90.5 Acquired absence of kidney
CPT/HCPCS: 36415; 85025; 99282-25

== ENCOUNTER 2019-01-31 08:18 | Day surgery (SDC) | payer OTHER ==
[2019-01-22 16:15] VITALS: BMI 25.4
[2019-01-31] MEDS ORDERED: ROPIVACAINE HCL 0.5% 30ML VIAL ONE (09:40)
[2019-01-31] MEDS ORDERED: MIDAZOLAM HCL 2 MG/2 ML SINGLE DOSE VIAL ONE ×2 (09:40→09:52)
[2019-01-31] MEDS ORDERED: ONDANSETRON 4 MG/2 ML VIAL ONE (09:52)
[2019-01-31] MEDS ORDERED: PROPOFOL 20 ML ONE ×2 (09:52)
[2019-01-31 13:38] VITALS: TEMP 98
[2019-01-31] MEDS ORDERED: ONDANSETRON 4 MG/2 ML VIAL IVPUSH PRN (14:18)
[2019-01-31] MEDS ORDERED: oxyCODONE HCL 5 MG TABLET PO PRN (14:18)
[2019-01-31] MEDS ORDERED: LACTATED RINGERS SOLUTION 1,000 ML IV SCH (14:30)
[2019-01-31 15:10] VITALS: BP 122/75; PULSE 80
--- NOTE | 2019-01-31 16:40 | OP ---
DATE OF OPERATION: 01/31/2019 PREOPERATIVE DIAGNOSIS: Right shoulder impingement. POSTOPERATIVE DIAGNOSES: 1. Right shoulder subacromial impingement syndrome with large anterior-inferior subacromial spur and partial thickness tearing of the bursal surface of the supraspinatus tendon. 2. Right shoulder diffuse labral fraying and synovitis of the glenohumeral joint. OPERATIVE PROCEDURES: 1. Right shoulder operative arthroscopy with arthroscopic subacromial decompression and anterior-inferior acromioplasty. 2. Right shoulder arthroscopy with glenohumeral joint extensive debridement. SURGEON: Jet Obrien MD CDL TRUCK DRIVER: JACLYN Jacobson ANESTHESIA: Regional. COMPLICATIONS: None. ESTIMATED BLOOD LOSS: Minimal. INDICATIONS FOR PROCEDURE: The patient is a 63-year-old male with the above findings, indicated for operative treatment. The risks, benefits and alternatives were discussed with the patient at length and proper informed consent was obtained. DESCRIPTION OF PROCEDURE: After proper identification of the patient and correct operative site, the patient was brought to the operating room and placed supine on the table, with all bony prominences well-padded. Sedation and regional anesthesia were. The right upper extremity was prepped and draped in the usual sterile fashion. Beach chair positioning was performed, with in-line cervical positioning maintained throughout the procedure. All points of contact were well-padded. Arthroscopy was performed through posterior, lateral and anterior portals. All portals were created with skin incision only and blunt dissection down to joint to joint capsule. The glenohumeral joint was 1st observed and found to have very mild arthritic changes. There was diffuse labral fraying and partial tearing, which was debrided with a mechanical shaver. Moderate synovitis was noted, especially in the anterior capsule, and a Stella complex was noted. Synovitis was debrided thoroughly. The subscapularis was intact. The biceps tendon, including intra-articular and extra-articular portions were intact without any significant fraying. The biceps anchor was intact. The subscapularis and infraspinatus were both intact, with just very mild fraying at their insertion points, which was debrided with a mechanical shaver as well. No loose bodies were found. The arthroscope was then introduced into the subacromial space, where severe bursitis was noted and significant synovitis with a lot of synovial fluid coming out of the joint. This was debrided with the mechanical shaver as well as ArthroWand, and a very large anterior subacromial spur was noted, digging into the rotator cuff anteriorly. There was approximately a 25% thickness tear of the anterior aspect of the supraspinatus tendon, which was debrided. There was no area where there was a full-thickness tear or more than 50% tear. This was debrided with the mechanical shaver down to healthy tissue. An anterior-inferior acromioplasty was performed with a bur. This provided excellent room for the rotator cuff to not impinge anymore. The wound was irrigated and repaired with 5-0 nylon sutures. Sterile dressings were applied. The patient was reversed from anesthesia and brought to the recovery room in stable condition. Brett Wilkins, the housing assistant, was integral throughout this procedure. The procedure could not have been performed without a skilled operative housing assistant. JET OBRIEN M.D. [id number]
== END 2019-01-31 14:20 | disposition home or self-care (01) ==
LOC: FASU 08:18
PROVIDERS: ATTEND Orthopaedic Surgery Hand Surgery
PROC: 0RNJ4ZZ Release Right Shoulder Joint, Percutaneous Endoscopic Approach (ICD-10-PCS; principal; 2019-01-31 11:26)
DX: M75.41 Impingement syndrome of right shoulder (principal); M25.711 Osteophyte, right shoulder; M75.111 Incomplete rotator cuff tear or rupture of right shoulder, not specified as traumatic; M12.211 Villonodular synovitis (pigmented), right shoulder
CPT/HCPCS: 94760

== ENCOUNTER 2020-04-03 13:08 | Emergency (ER) | payer OTHER, MEDICARE ==
[2020-04-03 13:19] VITALS: BMI 24.4
[2020-04-03] MEDS ORDERED: ASPIRIN 81 MG CHEWABLE TABLETS PO ONE (15:04)
[2020-04-03] MEDS ORDERED: clonazePAM 0.5 MG TABLET PO ONE (15:04)
[2020-04-03] MEDS ORDERED: ASPIRIN 81 MG CHEWABLE TABLETS ONE ×2 (15:17→15:22)
[2020-04-03] MEDS ORDERED: clonazePAM 0.5 MG TABLET ONE (15:25)
[2020-04-03 17:47] VITALS: BP 114/70; PULSE 76; TEMP 98
== END 2020-04-03 18:40 | disposition home or self-care (01) ==
LOC: FER 13:08
DX: S76.112A Strain of left quadriceps muscle, fascia and tendon, initial encounter (principal)
CPT/HCPCS: 73552-TC-LT-FY; 73562-TC-LT-FY; 99284-25

== ENCOUNTER 2020-04-10 10:18 | Day surgery (SDC) | payer OTHER, MEDICARE ==
[2020-04-07 14:50] VITALS: BMI 24.4
[~2020-04-10 10:18] MED LIST: ACETAMINOPHEN 325 MG TABLET (FP) PO PRN
[2020-04-10] MEDS ORDERED: BUPIVACAINE LIPOSOME/PF (EXPAREL) 266 MG/20 ML VIAL ONE (13:51)
[2020-04-10] MEDS ORDERED: MIDAZOLAM HCL 2 MG/2 ML SINGLE DOSE VIAL ONE (13:51)
[2020-04-10] MEDS ORDERED: PROPOFOL 20 ML ONE (14:54)
[2020-04-10] MEDS ORDERED: ceFAZolin SODIUM 1 GM VIAL ONE (15:11)
[2020-04-10] MEDS ORDERED: ONDANSETRON 4 MG/2 ML VIAL ONE ×2 (15:25→16:42)
[2020-04-10] MEDS ORDERED: DEXAMETHASONE SOD PHOSPHATE 4 MG/1 ML VIAL ONE (15:25)
[2020-04-10] MEDS ORDERED: BISACODYL 5 MG TABLET.DR (FP) PO ONE (16:33)
[2020-04-10] MEDS ORDERED: MAGNESIUM HYDROX 2400MG/30ML ORAL SUSPENSION 30 ML CUP PO PRN (16:33)
[2020-04-10] MEDS ORDERED: ONDANSETRON 4 MG/2 ML VIAL IVPUSH PRN (16:40)
[2020-04-10] MEDS ORDERED: oxyCODONE HCL 5 MG TABLET PO PRN (16:40)
[2020-04-10] MEDS ORDERED: LACTATED RINGERS SOLUTION 1,000 ML IV SCH (16:45)
[2020-04-10] MEDS ORDERED: SENNOSIDES 8.8 MG/5 ML BULK BOTTLE PO SCH (22:00)
[2020-04-10] MEDS: CEFAZOLIN 1 GM/D5W 1 GM/50 ML BAG IVPB SCH (23:00)
[2020-04-10] MEDS ORDERED: ATORVASTATIN CA 40 MG TABLET (FP) PO SCH (23:30)
[2020-04-11] MEDS ORDERED: clonazePAM 0.5 MG TABLET PO ONE (00:15)
[2020-04-11] MEDS: CEFAZOLIN 1 GM/D5W 1 GM/50 ML BAG IVPB SCH (06:23)
[2020-04-11 06:48] VITALS: BP 140/70; PULSE 100; TEMP 98.6
[2020-04-11] MEDS ORDERED: ASCORBIC ACID 500 MG TABLET (FP) PO SCH (10:00)
[2020-04-11] MEDS ORDERED: MULTIVITAMINS (DAILY MVI) TABLET (FP) PO SCH (10:00)
[2020-04-11] MEDS ORDERED: clonazePAM 0.5 MG TABLET PO SCH (10:00)
[2020-04-11] MEDS ORDERED: ASPIRIN 81 MG CHEWABLE TABLETS PO ONE (13:00)
[2020-04-11] MEDS ORDERED: CLOPIDOGREL BISULFATE 75 MG TABLET (FP) PO SCH (16:00)
[2020-04-11] MEDS ORDERED: SENNOSIDES 8.6MG TABLET (FP) PO SCH (22:00)
== END 2020-04-11 15:49 | disposition home or self-care (01) ==
LOC: FASU 10:18 → FM/S 18:03 → FASU 04-11 15:49
PROVIDERS: ATTEND Orthopaedic Surgery Sports Medicine
PROC: 0LMM0ZZ Reattachment of Left Upper Leg Tendon, Open Approach (ICD-10-PCS; principal; 2020-04-10 15:12)
DX: S76.112A Strain of left quadriceps muscle, fascia and tendon, initial encounter (principal); X58.XXXA Exposure to other specified factors, initial encounter; Y93.9 Activity, unspecified; Y92.9 Unspecified place or not applicable; Y99.9 Unspecified external cause status
CPT/HCPCS: 94760; 97162-GP

== ENCOUNTER 2022-06-07 12:39 | Emergency (ER) | payer OTHER, MEDICARE ==
[2022-06-07 12:50] VITALS: BMI 25.0
[2022-06-07 15:38] LABS: BASO % 0.4 % (0-2.0); EOS % 2.7 % (0-4.5); HEMATOCRIT 40.2 % (35.4-49); HEMOGLOBIN 13.4 GM/dL (11.7-16.9); LYMPH % 18.5 % (8-40); MCH 31.3 pg (25.7-33.7); MCHC 33.3 g/dl (32.0-35.9); MEAN PLT VOLUME 7.6 fl (7.5-11.1); MONO % 13.2 % (3.8-10.2); NEUT % 65.2 % (42.8-82.8); PLATELET COUNT 196 10^3/uL (134-434); RBC 4.27 M/mm3 (4.00-5.60); WHITE BLOOD COUNT 5.6 K/mm3 (4.0-10.0)
[2022-06-07 15:44] LABS: INR 0.97 (0.83-1.09); PROTHROMBIN TIME (PATIENT) 11.2 SEC (9.7-13.0)
[2022-06-07 15:47] LABS: ACTIVATED PTT 31.5 SECONDS (25.2-36.5)
[2022-06-07 16:00] LABS: ALBUMIN 3.5 g/dl (3.4-5.0); BLOOD UREA NITROGEN 28.8 mg/dL (7-18); CALCIUM 9.2 mg/dL (8.5-10.1)
[2022-06-07 16:04] LABS: CREATININE 1.6 mg/dL (0.55-1.3)
[2022-06-07 16:05] LABS: BILIRUBIN,TOTAL 0.3 mg/dL (0.2-1); TOT PROT 6.8 g/dl (6.4-8.2)
[2022-06-07] MEDS ORDERED: SODIUM CHLORIDE 1,000 ML IV ONE (16:35)
[2022-06-07 16:53] VITALS: BP 132/73; PULSE 78; RESP 15; TEMP 98.2
[2022-06-07 19:41] LABS: URINE APPEARANCE CLOUDY; URINE BILIRUBIN NEGATIVE (NEGATIVE); URINE GLUCOSE (UA) NEGATIVE (NEGATIVE); URINE PROTEIN 4+ (NEGATIVE)
[2022-06-07 19:51] LABS: URINE COLOR BLOODY
[2022-06-07 22:59] LABS: EPI CELLS FEW /uL (0-25.1); HYALINE CASTS NEGATIVE /uL (0-3.1); URINE BACTERIA FEW /uL (0-1359)
[2022-06-10 07:32] LABS: URINE RBC TNTC /uL (0-23.9)
== END 2022-06-07 19:09 | disposition home or self-care (01) ==
LOC: JER 12:39
PROC: 3E0337Z Introduction of Electrolytic and Water Balance Substance into Peripheral Vein, Percutaneous Approach (ICD-10-PCS; principal; 2022-06-07)
PROC: 0T9B70Z Drainage of Bladder with Drainage Device, Via Natural or Artificial Opening (ICD-10-PCS; 2022-06-07)
DX: R31.0 Gross hematuria (principal)
CPT/HCPCS: 36415; 76775-TC; 80053; 81003; 85025; 85610; 85730; 86850; 86900; 86901; 87086; 99284-25